=== PATIENT | female | born 1940 | race Two or more races ===

== ENCOUNTER → 2020-06-07 | Outpatient (CLI) | payer MEDICARE, OTHER ==
[2020-06-07 10:54] VITALS: BP 129/84; PULSE 75; RESP 18; TEMP 98.3
--- NOTE | 2020-06-07 11:12 | P.CONS ---
History of Present Illness - Reason for Consult Consult date: 06/07/20 - Chief Complaint Lower back pain - History of Present Illness This is a 79-year-old lady with history of chronic mostly axial lower back pain. The patient had diagnostic lumbar medial branch block at a different clinic clinic and was referred to us to do the radiofrequency ablation on the lumbar medial branches bilaterally. The pain goes across her lower back and only slightly down the left leg to the upper buttock area. Her pain gets worse by activities and improves by lying down in bed. She has been getting physical therapy which has helped her muscle strength. She uses a cane for ambulation. It looks like she did have caudal epidural steroid injection previously also. Past Medical History Past Medical History: Cancer, Musculoskeletal Disorder, Osteoarthritis (OA) Additional Past Medical History / Comment(s): hx. skin cancer, low back pain History of Any Multi-Drug Resistant Organisms: None Reported Past Surgical History: Appendectomy, Cholecystectomy, Hysterectomy, Tubal Ligation Additional Past Surgical History / Comment(s): liver laceration explor, ovarian surg. x2, cataracts removed Past Anesthesia/Blood Transfusion Reactions: No Reported Reaction Smoking Status: Never smoker Past Alcohol Use History: Occasional Additional Past Alcohol Use History / Comment(s): occasional glass of wine Past Drug Use History: None Reported Medications and Allergies Home Medications Medication Instructions Recorded Confirmed Type Acetaminophen [Tylenol Arthritis] 1,300 mg PO BID 06/01/20 06/07/20 History Allopurinol [Zyloprim] 300 mg PO DAILY 06/01/20 06/07/20 History Aspirin 325 mg PO BID 06/01/20 06/07/20 History Docusate [Colace] 200 mg PO BID 06/01/20 06/07/20 History Fish Oil/Dha/Epa [Fish Oil 1,200 1 each PO DAILY 06/01/20 06/07/20 History mg Fish Oil] Furosemide [Lasix] 40 mg PO DAILY 06/01/20 06/07/20 History Meloxicam [Mobic] 15 mg PO DAILY 06/01/20 06/07/20 History Multivitamins, Thera [Multivitamin 1 tab PO DAILY 06/01/20 06/07/20 History (formulary)] Sennosides [Senna] 2 tab PO BID 06/01/20 06/07/20 History Allergies Allergy/AdvReac Type Severity Reaction Status Date / Time No Known Allergies Allergy Verified 06/01/20 15:20 Physical Exam Vitals: Vital Signs Temp Pulse Resp BP Pulse Ox 06/07/20 10:48 98.3 F 75 18 129/84 97 - Constitutional General appearance: obese - Gastrointestinal General gastrointestinal: no organomegaly, soft, no tenderness - Integumentary Integumentary: no calor, no cellulitis, no cyanotic, no decreased turgor, no flushed, no jaundiced, no normal, no normal turgor, no pale, no rash, no ulcer - Neurologic Neuro exam of the lower extremities showed decreased but symmetrical muscle strength to 4 out of 5 bilaterally in the lower extremities for knee flexion and extension hip flexion and extension and hip abduction and adduction. Normal 5 out of 5 muscle strength for ankle flexion and extension. Normal straight leg raising test bilaterally. Positive facet loading test bilaterally. Tenderness around the right sacroiliac joint. Tenderness around the greater trochanter bilaterally. Neurologic: CNII-XII intact, focal deficits - Psychiatric Psychiatric: A&O x's 3, appropriate affect, intact judgment & insight Assessment and Plan Plan: This is a 79-year-old lady with mostly axial lower back pain that responded well to medial branch block at a different clinic clinic. The patient may benefit from getting lumbar radiofrequency ablation for L3 4, L4-L5, and L5-S1. We will start by doing the left side because it is more painful and then we'll do the right side few weeks after. The procedure was explained to the patient and she was agreeable to it. I thank you for the referral
== END | disposition home or self-care (01) ==
LOC: PNWHC3 10:35
PROVIDERS: ATTEND Anesthesiology
DX: M54.5 Low back pain (principal); M19.90 Unspecified osteoarthritis, unspecified site; Z79.82 Long term (current) use of aspirin; Z79.899 Other long term (current) drug therapy; Z79.891 Long term (current) use of opiate analgesic
CPT/HCPCS: 99211

== ENCOUNTER 2020-07-20 10:02 | Day surgery (SDC) | payer MEDICARE, OTHER ==
[2020-06-30 12:06] VITALS: BMI 29.2
[~2020-07-20 10:02] MED LIST: LACTATED RINGERS 1,000 ML IV SCH
[2020-07-20 10:20] VITALS: TEMP 98.8
[2020-07-20] MEDS ORDERED: fentaNYL (PF) 50 MCG/ML 2 ML AMP ONE (10:41)
[2020-07-20] MEDS ORDERED: MIDAZOLAM 2 MG/2 ML VIAL ONE (10:41)
[2020-07-20] MEDS ORDERED: ROPIVACAINE 5MG/ML 20ML VIAL ONE (10:41)
[2020-07-20] MEDS ORDERED: methylPREDNISolone ACETATE 40 MG/ML 1 ML VIAL ONE (10:41)
--- NOTE | 2020-07-20 11:22 | P.PCN ---
Date of Procedure: 07/20/20 Procedure(s) Performed: PREOPERATIVE DIAGNOSIS: 1-Lumbar Spondylosis with Facet Arthropathy without myelopathy. 2- Lumber degenerative disc disease. POSTOPERATIVE DIAGNOSIS: 1- Lumbar Spondylosis with Facet Arthropathy without myelopathy. 2- Lumber degenerative disc disease. PROCEDURES : Left Radiofrequency thermocoagulation,L2 , L3 , L4 , and L5 medial branch, with fluoroscopic guidance (fluoroscopy images available in the radiology department) ( to denervate the facet joint at left L3-4 , L4-5 ,and L5-S1 levels ) ANESTHESIA: Moderate sedation with intravenous versed 3 mg and fentaneyl 100 mcg, and local infiltration with Ropivacaine 0.5 % . EBL: Minimal PROCEDURE INDICATION: The patient with low back pain secondary to lumbar facet arthropathy who had more than 50% relief of her pain with previous diagnostic lumbar medial branch block with bupivacaine. PROCEDURE DESCRIPTION / TECHNIQUE: The patient was seen and identified in the preoperative area. Risks, benefits, complications, including but not limited to risk of infection ,bleeding , allergic reactions to the medications and no complete pain releife , and alternatives were discussed with the patient, the patient agreed to proceed with the procedure and signed the consent. IV was star juanito. Vital signs remained stable throughout the procedure. Patient was taken to the OR and time out was completed. The patient was placed in the prone position on the procedure table. The lumber area was prepped and draped in the usual sterile fashion. . Vital signs were closely monitored during the procedure .IV sedation was used during the procedure to decrease patients anxiety. Using AP and then oblique fluoroscopy, the ``eye of the Cuco dog corresponding to the connection between the superior and transverse articular processes of Left L2 , L3, L4, and L5 were identified, marked, and localized with 1% lidocaine. Subsequently, a 18 -wg radiofrequency cannula with a 10-mm active tip was advanced guided by fluoroscopy to each of the``eyes of the Cuco dog at Left L2 , L3, L4, and L5. Each site then underwent sensory testing at 50 Hz and 0 to 1 volt and motor testing at 2.5 Hz and 0 to 3 volt with local stimulation, but no radicular symptoms down the legs. Thereafter each sites underwent radiofrequency thermocoagulation at 80 degrees celsius for 90 seconds after injecting 0.5 ml of PF Ropivacaine 1ml, then after the thermocoagulation done , 1 ml of the block solution containing Depo-Medrol 40 mg and 3 ml of Ropivacaine 0.5% was injected at the Left L2 , L3 , L4 , and L5 , levels after negative aspiration of CSF and blood and with no paresthesias. Cannulas were retracted while injecting lidocaine 1% until the needle is out. At the end of the procedure, the skin was cleansed and bandages were applied. COMPLICATIONS: No acute complications. DISPOSITION / PLANS: The patient was placed in a supine position and transferred to the recovery area in a stable condition for observation and was discharged from the recovery room after meeting discharge criteria. Home discharge instructions given to the patient by the staff. The patient was reexamined prior to discharge. The patient will schedule a follow up in the clinic in 2-4 weeks.
[2020-07-20 11:46] VITALS: BP 156/67; PULSE 73; RESP 16
[2020-07-20] MEDS ORDERED: IV FLUID CONTINUATION 1,000 ML IV ONE (11:46)
--- NOTE | 2020-07-20 13:58 | FL ---
Fluoroscopy HISTORY: Pain 12 seconds fluoroscopy time supplied to the referring clinician. 3 intraoperative C-arm images docum ent the procedure. See dictated report from anesthesia.
== END 2020-07-20 12:01 | disposition home or self-care (01) ==
LOC: ORPAIN 10:02
PROVIDERS: ATTEND Specialist
DX: M47.816 Spondylosis without myelopathy or radiculopathy, lumbar region (principal); M51.36 Other intervertebral disc degeneration, lumbar region
CPT/HCPCS: 64635; 64636 ×2; J2250; J1030; J3010; J2795; 99152

== ENCOUNTER 2020-08-13 10:04 | Day surgery (SDC) | payer MEDICARE, OTHER ==
[2020-08-10 16:57] VITALS: BMI 29.2
[2020-08-13 10:40] VITALS: TEMP 98.6
[2020-08-13] MEDS ORDERED: LACTATED RINGERS 1,000 ML IV ONE (10:40)
[2020-08-13] MEDS ORDERED: LIDOCAINE 1% (10MG/ML) FOR IV START INTRADERMA ONE (10:51)
[2020-08-13] MEDS ORDERED: LIDOCAINE 1% INJ 10MG/ML (20 ML MDV) ONE (10:55)
[2020-08-13] MEDS ORDERED: LIDOCAINE 4% (PF) 5 ML AMP ONE (10:55)
[2020-08-13] MEDS ORDERED: MIDAZOLAM 2 MG/2 ML VIAL ONE (10:55)
[2020-08-13] MEDS ORDERED: fentaNYL (PF) 50 MCG/ML 2 ML AMP ONE (10:55)
--- NOTE | 2020-08-13 11:25 | P.PCN ---
Date of Procedure: 08/13/20 Description of Procedure: PREOPERATIVE DIAGNOSIS: 1-Lumbar Spondylosis with Facet Arthropathy without myelopathy. 2- Lumber degenerative disc disease. POSTOPERATIVE DIAGNOSIS: 1- Lumbar Spondylosis with Facet Arthropathy without myelopathy. 2- Lumber degenerative disc disease. PROCEDURES : right Radiofrequency thermocoagulation,L2 , L3 , L4 , and L5 medial branch, with fluoroscopic guidance (fluoroscopy images available in the radiology department) ( to denervate the facet joint at right L3-4 , L4-5 ,and L5-S1 levels ) ANESTHESIA: Moderate sedation with intravenous versed and fentanyl, and local infiltration with lidocaine 1% . EBL: Minimal PROCEDURE INDICATION: The patient with low back pain secondary to lumbar facet arthropathy who had more than 50% relief of her pain with previous diagnostic lumbar medial branch block with bupivacaine. PROCEDURE DESCRIPTION / TECHNIQUE: The patient was seen and identified in the preoperative area. Risks, benefits, complications, including but not limited to risk of infection ,bleeding , allergic reactions to the medications and no complete pain relief , and alternatives were discussed with the patient, the patient agreed to proceed with the procedure and signed the consent. IV was started. Vital signs remained stable throughout the procedure. Patient was taken to the OR and time out was completed. The patient was placed in the prone position on the procedure table. The lumber area was prepped and draped in the usual sterile fashion. . Vital signs were closely monitored during the procedure .IV sedation was used during the procedure to decrease patients anxiety. Using AP and then oblique fluoroscopy, the ``eye of the Cuco dog corresponding to the connection between the superior and transverse articular processes of right L2 , L3, L4, and L5 were identified, marked, and localized with 1% lidocaine. Subsequently, a 18 gauge 100-mm radiofrequency cannula with a 10-mm active tip was advanced guided by fluoroscopy to each of the``eyes of the Cuco dog at right L3 , L4, L5, and sacral ala. Each site then underwent motor testing at 2.5 Hz and 0 to 3 volt with local stimulation, but no radicular symptoms down the legs. Thereafter each sites underwent radiofrequency thermocoagulation at 80 degrees celsius for 90 seconds after injecting 1 mL of lidocaine 4% with negative aspiration of CSF and blood. Cannulas were retracted while injecting lidocaine 1% until the needle is out. At the end of the procedure, the skin was cleansed and bandages were applied. COMPLICATIONS: No acute complications. DISPOSITION / PLANS: The patient was placed in a supine position and transferre d to the recovery area in a stable condition for observation and was discharged from the recovery room after meeting discharge criteria. Home discharge instructions given to the patient by the staff. The patient was reexamined prior to discharge. The patient will schedule a follow up in the clinic in 2-4 weeks.
[2020-08-13] MEDS ORDERED: IV FLUID CONTINUATION 500 ML IV ONE (11:30)
[2020-08-13 11:38] VITALS: RESP 16
[2020-08-13 11:52] VITALS: BP 146/77; PULSE 57
--- NOTE | 2020-08-13 12:09 | FL ---
EXAMINATION TYPE: FL guided pain mgmt statistic DATE OF EXAM: 08/13/2020 HISTORY: Fluoroscopy time 23 seconds of fluoroscopy provided. IMPRESSION: 1. Fluoroscopy time.
== END 2020-08-13 12:06 | disposition home or self-care (01) ==
LOC: ORPAIN 10:04
PROVIDERS: ATTEND Anesthesiology
DX: M47.816 Spondylosis without myelopathy or radiculopathy, lumbar region (principal); M51.36 Other intervertebral disc degeneration, lumbar region; I10 Essential (primary) hypertension; M19.90 Unspecified osteoarthritis, unspecified site; F32.9 Major depressive disorder, single episode, unspecified; Z79.899 Other long term (current) drug therapy; Z79.1 Long term (current) use of non-steroidal anti-inflammatories (NSAID); Z85.828 Personal history of other malignant neoplasm of skin
CPT/HCPCS: 64635; 64636 ×2; J2001 ×2; J2250; J3010

== ENCOUNTER → 2020-09-01 | Outpatient (CLI) | payer MEDICARE, OTHER ==
--- NOTE | 2020-09-01 11:26 | P.PAINPG ---
Subjective Progress Note Date: 09/01/20 This is a 79-year-old lady with history of chronic mostly axial lower back pain. The patient had diagnostic lumbar medial branch block at a different clinic clinic and was referred to us to do the radiofrequency ablation on the lumbar medial branches bilaterally. The pain goes across her lower back and only slightly down the left leg to the upper buttock area. Her pain gets worse by activities and improves by lying down in bed. She has been getting physical therapy which has helped her muscle strength. She uses a cane for ambulation. It looks like she did have caudal epidural steroid injection previously also. She just recently had R and L L2, L3, L4, L5 RFA. Here for follow up today. She notes that the radiofrequency ablations were very helpful for her, noting greater than 80% relief on both sides. Today she complains of pain over her right buttock region that hurts with sitting and riding his from a seated position. Pain is described as sharp and stabbing and unremitting throughout the day. She feels pain in this area as a 9 out of 10, and her lower back is currently a 1 out of 10. In addition to above, 13-point review of systems is also negative for chest pain, shortness of breath, changes in vision, changes in hearing, new onset weakness, abdominal pain, diarrhea, extreme fatigue, malaise, fever, skin changes, homicidal or suicidal ideation, or bowel or bladder incontinence. - Constitutional General appearance: obese - Neurologic Neuro exam of the lower extremities showed decreased but symmetrical muscle strength to 4 out of 5 bilaterally in the lower extremities for knee flexion and extension hip flexion and extension and hip abduction and adduction. Normal 5 out of 5 muscle strength for ankle flexion and extension. Normal straight leg raising test bilaterally. negative facet loading test bilaterally. Tenderness around the right sacroiliac joint. sudarshan positive on the right side, ganeslen positive right side, thigh thrust positive right side Tenderness around the greater trochanter bilaterally. Neurologic: CNII-XII intact, focal deficits - Psychiatric Psychiatric: A&O x's 3, appropriate affect, intact judgment & insight Assessment and Plan Plan: This is a 79-year-old lady with mostly axial lower back pain that responded well to medial branch block at a different clinic clinic. We most recently performed bilateral lumbar radiofrequency ablation for L3 4, L4-L5, and L5-S1 showed very helpful. She is now noticing pain in her right sacroiliac area. We will proceed with a right sacroiliac joint injection PQRS Measure Charge Sheet PQRS Narrative: Hx Alcohol Use (MH) Yes Home Medications: Ambulatory Orders Acetaminophen [Tylenol Arthritis] 1,300 mg PO BID PRN 06/01/20 Allopurinol [Zyloprim] 300 mg PO DAILY 06/01/20 Docusate [Colace] 200 mg PO BID 06/01/20 Fish Oil/Dha/Epa [Fish Oil 1,200 mg Fish Oil] 1,200 mg PO BID 06/01/20 Furosemide [Lasix] 40 mg PO DAILY 06/01/20 Meloxicam [Mobic] 15 mg PO DAILY 06/01/20 Multivitamins, Thera [Multivitamin (formulary)] 1 tab PO DAILY 06/01/20 Acetaminophen-Codeine 300-30mg [Tylenol w/codeine #3] 1 tab PO Q6H PRN 06/07/20 Senna-Lax 1 tab PO DAILY PRN 08/31/20 carBAMazepine [TEGretol XR] 200 mg PO Q12H 08/31/20 Controlled Substance Measures - Controlled Substance Measures Is patient prescribed a controlled substance at discharge?: No
[2020-09-01 11:42] VITALS: BP 112/71; PULSE 94; RESP 16; TEMP 98.1
== END ==
LOC: PNWHC3 11:10
PROVIDERS: ATTEND Anesthesiology
DX: M53.3 Sacrococcygeal disorders, not elsewhere classified (principal); Z98.890 Other specified postprocedural states; Z79.899 Other long term (current) drug therapy
CPT/HCPCS: 99211

== ENCOUNTER 2020-09-21 12:04 | Day surgery (SDC) | payer MEDICARE, OTHER ==
[2020-09-17 13:51] VITALS: BMI 29.2
[2020-09-21 13:43] VITALS: TEMP 96.9
[2020-09-21] MEDS ORDERED: ROPIVACAINE 5MG/ML 20ML VIAL ONE (14:10)
[2020-09-21] MEDS ORDERED: TRIAMCINOLONE ACETONIDE 40 MG/ML 1 ML VIAL ONE (14:10)
--- NOTE | 2020-09-21 14:24 | P.PCN ---
Date of Procedure: 09/21/20 Anesthesia: none Surgeon: Britt Ochoa Pathology: none sent Condition: stable Disposition: PACU Description of Procedure: Preoperative diagnoses= sacroiliac joint dysfunction and sacroiliitis on the right side Postoperative diagnoses= same as preoperative diagnosis. Procedure= sacroiliac joint steroid injection under fluoroscopic guidance. Anesthesia= local anesthesia with lidocaine 1% and IV moderate conscious sedation with fentanyl and Versed Estimated blood loss=minimal. Procedure indication= the patient had a history of severe chronic low back pain, diagnosed with sacroiliitis and lumbar sacral facet arthropathy unresponsive to conservative treatment. Procedure description= the patient was seen and identified in the preoperative holding area, risks and benefits and alternative of the procedure and possible complications discussed with the patient, patient signed the consent. an IV was started, and vital signs were monitored and were stable throughout the procedure, patient was placed in the prone position or table and the lumbosacral area was prepped and draped with a sterile fashion, vital signs were closely mo nitored during the procedure.The sacroiliac joint was identified on the AP view of fluoroscopy then the C-arm was tilted to the contralateral oblique position to superimpose the anterior and posterior joint lines on each other and to have a unified joint line with the target point at the inferior one third of this line. I used 22-gauge 3-1/2 inch Quincke spinal needle for this procedure and after getting into the sacroiliac joint I injected 40 mg of Kenalog +2 MLS of Ropivacaine 0.5%. Patient tolerated the procedure well without any complication, The patient returned to supine position after the back was cleaned and a Band- Aid applied, the patient transported to recovery room in stable condition and he was monitored for 30 minutes before she was discharged home in stable condition . patient will follow up with the pain clinic in a few weeks. A copy of the needle placement was saved to the C-arm machine.
--- NOTE | 2020-09-21 14:34 | FL ---
Fluoroscopy HISTORY: Pain 3 seconds fluoroscopy time supplied to the referring clinician. 1 intraoperative C-arm images docume nt the procedure. See dictated report from anesthesia.
[2020-09-21 15:14] VITALS: BP 140/767; PULSE 78; RESP 20
== END 2020-09-21 15:30 | disposition home or self-care (01) ==
LOC: ORPAIN 12:04
PROVIDERS: ATTEND Anesthesiology
DX: G89.29 Other chronic pain (principal); M46.1 Sacroiliitis, not elsewhere classified
CPT/HCPCS: J3301; J2795; G0260; 27096

== ENCOUNTER → 2021-08-03 | Outpatient (CLI) | payer MEDICARE, OTHER ==
--- NOTE | 2021-08-03 13:04 | P.PN ---
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 Ramirez for lumbar RFA. Patient states she underwent a series of 8 injections in the lower lumbar spine where she had experienced significant pain relief. Pain level is currently at 6 out of 10 in intensity at is dull and achy in the lower lumbar spine but in a sharp shooting character, ascends from the tailbone upward the lower lumbar spine. Pain is provoked by sitting for periods of 20 minutes or more, bending or lifting. Pain is alleviated with medications, Biofreeze gel, physical therapy 2 times a week for 6 months, chiropractic treatments, massage, repositioning and rest. Interventional pain procedures completed include lumbar facet blocks medial branches at Dr. Ramirez's office Patient denies any side effects of the medication(s), denies excessive drowsiness or sleepiness, denies suicidal ideation and reports that the current pain medication is helping to control the pain and improve activities of daily living. Patient denies any motor or sensory deficits. Patient denies any fever or night sweats, denies any change in the bowel movements or urination. Physical Examination: -Constitutional: Cooperative. Not in acute distress . -HEENT: Neck is supple. No lymphadenopathy. No thyromegaly. Normal thyroid size. Eyes: No ptosis , no icterus, no photophobia. ENT: No auditory deficits. Normal oropharynx. No Thrush. - Respiratory: Chest clear to auscultations bilaterally. No wheezing. No rhonchi. - Cardiovascular: Regular rate and rhythm. S1 / S2 , no S3 , no S4. - Gastrointestinal: Abdomen soft no tenderness. Bowel sounds positive in all four quadrants. No organomegaly. - Genitourinary: Deferred. - Neurologic: Cranial nerve II to XII intact. No focal neurological deficits. - Psychatric: Alert & oriented x 3. Matching mood & appropriate affect. Judgment and insight intact. - Lymphatic: No Lymphadenopathy. - Musculoskeletal: Cervical spine: Muscle bulk/ tone/ strength in the bilateral upper extremities normal. Facet loading test cervical area positive. Lumbar spine: Motor bulk/ tone/ strength lower extremities , thigh and legs : 5/5 Deep tendon reflexes : Normal Knee Jerk. Normal Ankle Jerk . Vertebral body tenderness to palpation over L5 Lumbar Facet Loading Test positive bilateral L4 to L5 and L5 to S1 Straight Leg Raise: positive at 30 degrees right side/ left side Gaenslen's Test postive Sacral spine : Severe tenderness over the Sacroiliac joint: right side / left side Range of motion: Flexion of the lumbar spine <60 degrees Range of motion: Extension of the lumbar spine <20 degrees Gaenslen's Test positive Jasper test: positive right side / left side Assessment and plan: Chronic low back pain secondary to lumbar degenerative disc disease , lumbar spondylosis with facet arthropathy without myelopathy Recommendation of bilateral RFA of the L3 to L5 Denies aspirin anticoagulant use Risks, benefits of procedure discussed and patient verbalizes understanding All patient questions answered MAPS reviewed and it was appropriate. I have spent 31 minutes on patient care today. Dr Perez was available by phone for the evaluation of this patient. The time was used to review the medical records including relevant urine studies and Prescription history (MAPs), review of the available imaging, evaluation and examination of the patient, coordination of care with the medical staff and if applicable referring physicians, as well as creation of the medical record Objective - Vital Signs Vital signs: Intake & Output 08/02/21 08/03/21 08/03/21 18:59 06:59 18:59 Weight 74.843 kg PQRS Measure Charge Sheet Mode of Arrival: Cane PQRS Narrative: Pain Intensity [Lower Back] 5 Scale Used Numeric (1 - 10) Hx Alcohol Use (MH) Yes: RARE Home Medications: Ambulatory Orders Acetaminophen [Tylenol Arthritis] 1,300 mg PO BID 06/01/20 Allopurinol [Zyloprim] 300 mg PO QAM 06/01/20 Docusate [Colace] 200 mg PO BID 06/01/20 Fish Oil/Dha/Epa [Fish Oil 1,200 mg Fish Oil] 1,200 mg PO BID 06/01/20 Furosemide [Lasix] 40 mg PO QAM 06/01/20 Meloxicam [Mobic] 15 mg PO QAM 06/01/20 Acetaminophen [Tylenol Arthritis] 650 mg PO 1200 08/02/21 Docusate [Colace] 100 mg PO 1200 08/02/21 Furosemide [Lasix] 20 mg PO 1200 08/02/21 Naproxen 500 mg PO BID 08/02/21 traMADol HCL 50 mg PO BID 08/02/21
[2021-08-03 13:36] VITALS: BP 128/90; PULSE 86; RESP 18; TEMP 98
== END ==
LOC: PNWHC3 12:10
PROVIDERS: ATTEND Physician Assistant Medical
DX: M51.36 Other intervertebral disc degeneration, lumbar region (principal); M47.816 Spondylosis without myelopathy or radiculopathy, lumbar region; G89.29 Other chronic pain
CPT/HCPCS: 99211

== ENCOUNTER 2021-09-09 11:25 | Day surgery (SDC) | payer MEDICARE, OTHER ==
[2021-09-07 15:27] VITALS: BMI 28.3
[~2021-09-09 11:25] MED LIST changes: +LIDOCAINE 1% (10MG/ML) FOR IV START INTRADERMA PRN
[2021-09-09 12:11] VITALS: TEMP 99.2
[2021-09-09] MEDS ORDERED: ROPIVACAINE 5MG/ML 20ML VIAL ONE (12:26)
[2021-09-09] MEDS ORDERED: MIDAZOLAM 2 MG/2 ML VIAL ONE (12:26)
[2021-09-09] MEDS ORDERED: methylPREDNISolone ACETATE 40 MG/ML 1 ML VIAL ONE (12:26)
[2021-09-09] MEDS ORDERED: fentaNYL (PF) 50 MCG/ML 2 ML AMP ONE (12:26)
--- NOTE | 2021-09-09 13:05 | P.PCN ---
Date of Procedure: 09/09/21 Procedure(s) Performed: PREOPERATIVE DIAGNOSIS: 1-Lumbar Spondylosis with Facet Arthropathy without myelopathy. 2- Lumber degenerative disc disease. POSTOPERATIVE DIAGNOSIS: 1- Lumbar Spondylosis with Facet Arthropathy without myelopathy. 2- Lumber degenerative disc disease. PROCEDURES : Bilateral Radiofrequency thermocoagulation, L3 , L4 , and L5 medial branch, with fluoroscopic guidance (fluoroscopy images available in the radiology department) ( to denervate the facet joint at Bilateral L4-5 ,and L5-S1 levels ). ANESTHESIA: Monitored anesthesia care as per anesthesia department . EBL: Minimal PROCEDURE INDICATION: The patient with low back pain secondary to lumbar facet arthropathy who had more than 50% relief of her pain with previous diagnostic lumbar medial branch block with bupivacaine. PROCEDURE DESCRIPTION / TECHNIQUE: The patient was seen and identified in the preoperative area. Risks, benefits, complications, including but not limited to risk of infection ,bleeding , allergic reactions to the medications and no complete pain releife , and alternatives were discussed with the patient, the patient agreed to proceed with the procedure and signed the consent. IV was started. Vital signs remained stable throughout the procedure. Patient was taken to the OR and time out was completed. The patient was placed in the prone position on the procedure table. The lumber area was prepped and draped in the usual sterile fashion. . Vital signs were closely monitored during the procedure .IV sedation was used during the procedure to decrease patients anxiety. Using AP and then oblique fluoroscopy, the ``eye of the Cuco dog co rresponding to the connection between the superior and transverse articular processes of right L3, L4, and L5 were identified, marked, and localized with 1% lidocaine. Subsequently, a 18 -om radiofrequency cannula with a 10- mm active tip was advanced guided by fluoroscopy to each of the``eyes of the Cuco dog at right L3, L4, and L5. Each site then underwent sensory testing at 50 Hz and 0 to 1 volt and motor testing at 2.5 Hz and 0 to 3 volt with local stimulation, but no radicular symptoms down the legs. Thereafter each sites underwent radiofrequency thermocoagulation at 80 degrees celsius for 90 seconds after injecting 0.5 ml of PF Ropivacaine 1ml, then after the thermocoagulation done , 1 ml of the block solution containing Depo-Medrol 20 mg and 3 ml of Ropivacaine 0.5% was injected at the right L3 , L4 , and L5 , levels after negative aspiration of CSF and blood and with no paresthesias. Cannulas were retracted while injecting lidocaine 1% until the needle is out. The same procedure was repeated at the level of Left L3, L4, and L5 levels. At the end of the procedure, the skin was cleansed and bandages were applied. COMPLICATIONS: No acute complications. DISPOSITION / PLANS: The patient was placed in a supine position and transferred to the recovery area in a stable condition for observation and was discharged from the recovery room after meeting discharge criteria. Home discharge instructions given to the patient by the staff. The patient was reexamined prior to discharge. The patient will schedule a follow up in the clinic in 2-4 weeks.
[2021-09-09] MEDS ORDERED: IV FLUID CONTINUATION 1,000 ML IV ONE (13:10)
--- NOTE | 2021-09-09 13:11 | FL ---
EXAMINATION TYPE: FL guided pain mgmt statistic DATE OF EXAM: 09/09/2021 HISTORY: Fluoroscopy time 35 seconds of fluoroscopy provided. IMPRESSION: 1. Fluoroscopy time.
[2021-09-09 13:30] VITALS: BP 141/72; PULSE 100; RESP 16
== END 2021-09-09 14:01 | disposition home or self-care (01) ==
LOC: ORPAIN 11:25
PROVIDERS: ATTEND Specialist
DX: M47.816 Spondylosis without myelopathy or radiculopathy, lumbar region (principal); M51.36 Other intervertebral disc degeneration, lumbar region; I10 Essential (primary) hypertension; F32.A Depression, unspecified; Z79.899 Other long term (current) drug therapy; Z90.710 Acquired absence of both cervix and uterus; Z98.890 Other specified postprocedural states
CPT/HCPCS: 64635; 64636; J2250; J1030; J3010; J2795

== ENCOUNTER 2023-02-15 08:36 | Inpatient (IN) | payer MEDICARE, OTHER ==
[2023-02-15] MEDS ORDERED: MORPHINE SULFATE 2 MG/ML SYRINGE IVP STA (09:10)
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
[2023-02-15 09:29] LABS: Basophils # (A) 0.1 k/uL (0-0.2); Basophils % (A) 1 %; Eosinophils # (A) 0.4 k/uL (0-0.7); Eosinophils % (A) 6 %; HCT 41.7 % (34.0-46.0); HGB 13.7 gm/dL (11.4-16.0); Lymphocytes # (A) 3.4 k/uL (1.0-4.8); Lymphocytes % (A) 46 %; MCH 35.1 pg (25.0-35.0); MCHC 32.9 g/dL (31.0-37.0); MCV 106.9 fL (80.0-100.0); Macrocytosis Moderate; Mean Platelet Volume 8.7; Monocytes # (A) 0.4 k/uL (0-1.0); Monocytes % (A) 6 %; Neutrophils # (A) 2.9 k/uL (1.3-7.7); Neutrophils % (A) 39 %; Platelet Count 151 k/uL (150-450); RDW 13.1 % (11.5-15.5); WBC 7.3 k/uL (3.8-10.6)
[2023-02-15 09:47] LABS: ALT 17 U/L (4-34); African American GFR (CKD) 75 (>60 ml/min/1.73 sqM); Albumin 3.4 g/dL (3.5-5.0); Anion Gap 9 mmol/L; Blood Urea Nitrogen 23 mg/dL (7-17); Calcium 9.9 mg/dL (8.4-10.2); Carbon Dioxide 22 mmol/L (22-30); Chloride 102 mmol/L (98-107); Glucose 117 mg/dL (74-99); Non-African American GFR(CKD) 65 (>60 ml/min/1.73 sqM); Sodium 133 mmol/L (137-145); Total Bilirubin 0.6 mg/dL (0.2-1.3)
[2023-02-15 09:53] LABS: Appearance,Urine Cloudy (Clear); Bacteria,Urine Rare /hpf; Bilirubin,Urine Negative (Negative); Blood,Urine Moderate (Negative); Glucose,Urine (UA) Trace (Negative); Hyaline Casts,Urine 3 /lpf (0-2); Ketones,Urine Negative (Negative); Leukocyte Esterase,Urine Large (Negative); Mucus,Urine Rare /hpf; Nitrite,Urine Negative (Negative); PH, Urine 5.5 (5.0-8.0); Protein,Urine 1+ (Negative); RBC,Urine 66 /hpf (0-5); Specific Gravity,Urine 1.019 (1.001-1.035); Squamous Epithelial Cell,Urine 3 /hpf (0-4); Urobilinogen,Urine <2.0 mg/dL (<2.0); WBC,Urine >182 /hpf (0-5)
[2023-02-15 09:58] LABS: INR 0.9 (<1.2); Prothrombin Time 9.6 sec (9.0-12.0)
[2023-02-15 10:00] LABS: AST 30 U/L (14-36); Alkaline Phosphatase 157 U/L (38-126); Potassium 4.2 mmol/L (3.5-5.1)
[2023-02-15 10:01] LABS: Color,Urine Yellow
[2023-02-15 10:03] LABS: Partial Thromboplastin Time 21.1 sec (22.0-30.0)
--- NOTE | 2023-02-15 10:54 | CT ---
EXAMINATION TYPE: CT abdomen pelvis w con CT DLP: 642.3 mGycm, Automated exposure control for dose reduction was used. DATE OF EXAM: 02/15/2023 10:33 AM COMPARISON: None CLINICAL INDICATION:Female, 82 years old with history of Abdominal pain, acute, nonlocalized; Abdomin al pain, rectal and vaginal pain. TECHNIQUE: Standard CT of the abdomen and pelvis following the administration of 100 cc of Isovue 3 00 IV contrast material. Coronal and sagittal reformats were performed. FINDINGS: LOWER CHEST: Posterior dependent subsegmental atelectasis is noted. Dense mitral annulus calcificatio ns. ABDOMEN LIVER: Right inferior hepatic lobe 1.1 cm hyperdense lesion favored represent a flash filling hemangi isabella. GALLBLADDER AND BILE DUCTS: Gallbladder is surgically absent with mild intrahepatic and extra hepatic biliary dilatation likely physiologic and a postcholecystectomy change. No evidence of choledocholit hiasis. PANCREAS: Unremarkable. SPLEEN: Few calcific granulomas ADRENAL GLANDS: Unremarkable. KIDNEYS AND URETERS: No evidence of hydronephrosis or renal calculus. The kidneys enhance symmetrical ly. Contrast is demonstrated within both collecting systems on the delayed phase. PELVIS BLADDER: Unremarkable REPRODUCTIVE: The uterus is surgically absent. Pelvic floor laxity. ABDOMEN & PELVIS STOMACH AND BOWEL: Stomach and duodenum are unremarkable or cervical ventral wall thickening with hyp erenhancement of the distal sigmoid colon and rectum. Surrounding fat stranding identified. Distal co lonic diverticulosis without evidence for acute diverticulitis. No evidence of bowel obstruction. PERITONEUM: No evidence of pneumoperitoneum or free fluid. VASCULATURE: Mild atherosclerotic calcifications are present throughout the abdominal aorta and its b ranches. No evidence of aortic aneurysm. MUSCULOSKELETAL: No acute osseous abnormalities. Mild disc degeneration changes are present throughou t the thoracolumbar spine. Grade 1 anterolisthesis of L4 on L5 without evidence of pars defects. LYMPH NODES: No gross evidence for lymphadenopathy. SOFT TISSUE/ABDOMINAL WALL: Unremarkable IMPRESSION: 1. Findings most consistent with proctocolitis. 2. Colonic diverticulosis without evidence for acute diverticulitis.
[2023-02-15] MEDS ORDERED: cefTRIAXone IN SWFI 1,000 MG/10 ML SYRINGE IVP STA (11:07)
[2023-02-15] MEDS ORDERED: MORPHINE SULFATE 4 MG/ML SYRINGE IV PRN (11:17)
[2023-02-15] MEDS ORDERED: ONDANSETRON 4 MG/2 ML VIAL IVP PRN (11:17)
[2023-02-15] MEDS ORDERED: ACETAMINOPHEN TAB 325 MG TAB PO PRN ×2 (11:17→13:38)
[2023-02-15] MEDS ORDERED: NALOXONE 0.4 MG/ML 1 ML VIAL IV PRN (11:17)
[2023-02-15] MEDS: HYDROcodone/APAP 5-325MG 1 EACH TAB PO PRN (11:54)
[2023-02-15] MEDS ORDERED: NAPROXEN 250 MG TAB PO PRN (13:38)
[2023-02-15] MEDS ORDERED: LORazepam 0.5 MG TAB PO PRN (13:39)
[2023-02-15] MEDS ORDERED: LACTULOSE 20 GM/30 ML CUP PO PRN (13:39)
[2023-02-15] MEDS ORDERED: CALCIUM CARBONATE 500 MG CHEWABLE PO PRN (13:39)
[2023-02-15] MEDS ORDERED: MELATONIN 3 MG TABLET PO PRN (13:39)
[2023-02-15] MEDS ORDERED: MELOXICAM 7.5 MG TAB PO SCH (13:45)
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
[2023-02-15] MEDS: carBAMazepine 200 MG TAB PO SCH ×2 (16:25→20:03)
[2023-02-15] MEDS: ENOXAPARIN 40 MG/0.4 ML SYRINGE SQ SCH (16:25)
[2023-02-15] MEDS: PIPERACILLIN-TAZOBACTAM 3.375 GM in SODIUM CHLORIDE 0.9% 100 ML IVPB SCH ×2 (16:25→23:51)
[2023-02-15] MEDS: allopurinoL 300 MG TAB PO SCH (16:25)
[2023-02-15] MEDS: FAMOTIDINE 20 MG TAB PO SCH ×2 (16:25→20:03)
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
--- NOTE | 2023-02-15 17:12 | XR ---
PROCEDURE: XR Hip Complete LT -2 views DATE AND TIME: 02/15/2023 5:07 PM CLINICAL INDICATION: fall left hip pain TECHNIQUE: AP and frog-leg lateral views of the left hip were obtained. COMPARISON: None FINDINGS: There is no fracture or malalignment. The soft tissues are unremarkable. IMPRESSION: NO ACUTE PROCESS.
--- NOTE | 2023-02-15 17:19 | XR ---
PROCEDURE: XR ribs LT - 4V DATE AND TIME: 02/15/2023 5:07 PM CLINICAL INDICATION: PHH; Fall left rib pain TECHNIQUE: Department protocol COMPARISON: None FINDINGS: There is no displaced fracture or malalignment. No left pneumothorax or left pleural effusi on. The lungs and soft tissues are negative for acute process. Mildly enlarged cardiac silhouette not ed, with prominent mitral annular calcifications. IMPRESSION: Negative for left rib displaced fracture, left pneumothorax or left pleural effusion.
--- NOTE | 2023-02-15 19:34 | CA ---
Transthoracic Echo Report Name: Ingrid Avendaño Age: 82 Gender: F : 1940 Exam Date: 02/15/2023 15:52 Exam Location: [place] [facility] Ht (in): 64 Wt (lb): 125 Ordering Physician: Shweta Livingston Attending/Referring Phys: [id number], Miki Hose Seamer Ren Guthrie Procedure CPT: Indications: LV function, elevated troponin Cardiac Hx: Technical Quality: Contrast 1: Total Dose (mL): Contrast 2: Total Dose (mL): MEASUREMENTS (Male / Female) Normal Values 2D ECHO LV Diastolic Diameter PLAX 4.8 cm 4.2 - 5.9 / 3.9 - 5.3 cm LV Systolic Diameter PLAX 3.5 cm IVS Diastolic Thickness 1.2 cm 0.6 - 1.0 / 0.6 - 0.9 cm LVPW Diastolic Thickness 1.3 cm 0.6 - 1.0 / 0.6 - 0.9 cm LV Relative Wall Thickness 0.5 RV Internal Dim ED PLAX 2.9 cm LVOT Diameter 2.0 cm Aortic Root Diameter 2.8 cm LA Systolic Diameter LX 2.8 cm 3.0 - 4.0 / 2.7 - 3.8 cm LV Diastolic Volume MOD BP 61.4 cm??? 67 - 155 / 56 - 104 cm??? LV Systolic Volume MOD BP 33.2 cm??? 22 - 58 / 19 - 49 cm??? LV Ejection Fraction MOD BP 45.9 % >= 55 % LV Cardiac Index MOD BP 1231.5 cm???/min???m??? LV Diastolic Volume MOD 4C 68.6 cm??? LV Systolic Volume MOD 4C 32.0 cm??? LV Ejection Fraction MOD 4C 53.4 % LV Cardiac Index MOD 4C 1602.7 cm???/min???m??? LV Diastolic Length 4C 6.7 cm LV Systolic Length 4C 6.4 cm LV Diastolic Volume MOD 2C 52.9 cm??? LV Systolic Volume MOD 2C 34.4 cm??? LV Ejection Fraction MOD 2C 35.0 % LV Cardiac Index MOD 2C 810.4 cm???/min???m??? LV Diastolic Length 2C 7.0 cm LV Systolic Length 2C 6.3 cm LA Volume 67.6 cm??? 18 - 58 / 22 - 52 cm??? Ascending Aorta Diameter 2.7 cm DOPPLER AV Peak Velocity 169.8 cm/s AV Peak Gradient 11.5 mmHg LVOT Peak Velocity 73.7 cm/s LVOT Peak Gradient 2.2 mmHg AV Area Cont Eq pk 1.4 cm??? MV Peak Velocity 136.0 cm/s MV Peak Gradient 7.4 mmHg MV Mean Velocity 66.0 cm/s MV Mean Gradient 2.1 mmHg MV Velocity Time Integral 42.9 cm MR Peak Velocity 486.8 cm/s MR Peak Gradient 94.8 mmHg Mitral E Point Velocity 69.7 cm/s Mitral A Point Velocity 117.7 cm/s Mitral E to A Ratio 0.6 MV Deceleration Time 178.8 ms MV E' Velocity 4.9 cm/s Mitral E to MV E' Ratio 14.3 TR Peak Velocity 224.7 cm/s TR Peak Gradient 20.2 mmHg Right Ventricular Systolic Press 25.2 mmHg PV Peak Velocity 83.3 cm/s PV Peak Gradient 2.8 mmHg FINDINGS Left Ventricle Normal LV size. Mild concentric LVH. Anteroapical hypokenesis. Left ventricular ejection fraction is estimated at 40-45 %. Right Ventricle Normal right ventricular size. RVSP= 26mhg. Right Atrium Normal right atrial size. Left Atrium Mild to moderate LA dilitation. LA volume index= 42ml/m2 Mitral Valve Moderate Posterior MAC. Moderate to severe MR. Aortic Valve Aortic valve not well visualized. At least mild to moderate AV calcification. Mild AI. Tricuspid Valve Structurally normal tricuspid valve. Mild TR. Pulmonic Valve Pulmonic valve not well visualized. Mild PI. Pericardium Normal pericardium. Aorta Normal size aortic root and proximal ascending aorta. CONCLUSIONS Increase LV mass with reduced LV systolic function Large apical akinesis Ejection fraction around 40% Moderate to severe to severe mitral regurgitation Previewed by: Dr. Eleazar Mantilla MD (Electronically Signed) Final Date: 15 February 2023 19:33
[2023-02-16] MEDS: HYDROcodone/APAP 5-325MG 1 EACH TAB PO PRN ×2 (02:34→21:30)
[2023-02-16] MEDS ORDERED: AMINOPHYLLINE 500 MG/20 ML VIAL IV PRN (07:15)
[2023-02-16] MEDS ORDERED: REGADENOSON 0.4 MG/5 ML SYRINGE IV PRN (07:15)
[2023-02-16] MEDS ORDERED: CAFFEINE CITRATE 60 MG/3 ML VIAL IV PRN (07:15)
[2023-02-16] MEDS ORDERED: ASPIRIN 325 MG TAB PO STA (07:17)
[2023-02-16] MEDS ORDERED: NITROGLYCERIN SL TABS 0.4 MG TAB SUBLINGUAL PRN (07:17)
[2023-02-16] MEDS ORDERED: ALPRAZolam 0.25 MG TAB PO PRN (07:17)
[2023-02-16] MEDS ORDERED: ALPRAZolam 0.5 MG TAB PO PRN (07:17)
[2023-02-16] MEDS ORDERED: ATORVASTATIN 80 MG TAB PO STA (07:17)
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
[2023-02-16] MEDS: MELOXICAM 7.5 MG TAB PO SCH (09:09)
[2023-02-16] MEDS: carBAMazepine 200 MG TAB PO SCH ×2 (09:09→21:30)
[2023-02-16] MEDS: allopurinoL 300 MG TAB PO SCH (09:09)
[2023-02-16] MEDS: FAMOTIDINE 20 MG TAB PO SCH (09:09)
[2023-02-16] MEDS: SODIUM CHLORIDE 0.9% 1,000 ML in EMPTY BAG 1 BAG IV SCH (09:10)
[2023-02-16] MEDS: ENOXAPARIN 40 MG/0.4 ML SYRINGE SQ SCH (09:10)
[2023-02-16] MEDS: PIPERACILLIN-TAZOBACTAM 3.375 GM in SODIUM CHLORIDE 0.9% 100 ML IVPB SCH ×2 (09:10→17:12)
[2023-02-16] MEDS ORDERED: fentaNYL (PF) 50 MCG/ML 2 ML AMP IVP ONE (12:04)
[2023-02-16] MEDS ORDERED: MIDAZOLAM 2 MG/2 ML VIAL IVP ONE (12:04)
[2023-02-16] MEDS ORDERED: SODIUM CHLORIDE 0.9% 1,000 ML IV ONE (12:04)
[2023-02-16] MEDS ORDERED: LIDOCAINE 1% INJ 10MG/ML (20 ML MDV) SQ ONE (12:06)
[2023-02-16] MEDS ORDERED: VERAPAMIL SYRINGE (5 MG/10 ML) INTRAARTER ONE (12:07)
[2023-02-16] MEDS ORDERED: HEPARIN SODIUM 1,000 UN/ML (10ML VL) IV ONE (12:20)
[2023-02-16] MEDS ORDERED: IOPAMIDOL-370 100ML BTL INJ ONE (12:49)
--- NOTE | 2023-02-16 12:54 | P.CARDCATH ---
Date of Procedure: 02/16/23 Description of Procedure: DIAGNOSTIC CORONARY ANGIOGRAPHY and LEFT HEART CATH REPORT PROCEDURES PERFORMED: Left heart catheterization Selective coronary angiography Moderate conscious sedation 37 mins Right radial access INDICATION: NSTEMI Patient is a 82-year-old female who presented to the hospital with generalized weakness and frequent falling at home. On admission she was noticed to have urinary tract infection. Along with that she was noticed to have new EKG changes of T-wave inversions in inferolateral leads and mild elevation of troponin but with a flat pattern. This was followed up by a echocardiogram which showed new wall motion abnormality of 40-45%, anteroapical wall hypokinesia. Due to these findings she was scheduled for heart catheterization CONSENT: I have discussed the risks, benefits and alternative therapies for the above-mentioned procedure, sedation/analgesia and necessary blood product administration (if indicated, as they pertain to this patient). The patient has indicated understanding and acceptance of the risks and procedures discussed. Verbal consent was also obtained from the patient's daughter over phone after explaining her the risk factors of the procedure. Conscious Sedation: Patient's ECG, heart rate, blood pressure, pulse oximetry was monitored throughout the duration of procedure under the direct supervision. [1] mg Versed and 5 mg Fentanyl were used for induction of moderate conscious sedation. Total duration of 37 minutes. PROCEDURE:After the risks, benefits and alternatives of the above mentioned procedure explained in detail with the patient, informed consent was obtained. Patient was taken to the catheterization lab and prepped and draped in usual sterile fashion. 1% lidocaine was infiltrated over the right radial artery. A 6-Turkmen sheath was placed in the right radial artery using modified Seldinger technique. The sheath was flushed 5 mg verapamil was administered intra- arterially. J tipped wire was advanced under fluoroscopic guidance. Once the wire tip reached aortic root 3000 units of IV heparin was given. Over the wire JL3.5 diagnostic catheter was advanced. Wire was removed, catheter was flushed and manipulated under fluoroscopy to selectively engaged the left coronary ostium. Left coronary angioplasty was performed in different angiographic projections. This catheter was exchanged for a JR4 diagnostic catheter over the wire. The catheter was flushed and manipulated to cross the aortic valve. LV pressures were obtained. Pullback was performed across aortic valve and catheter was manipulated to selectively engage the right coronary ostium under fluoroscopic guidance. Right coronary angiography was performed in different angiographic projections. Catheter was removed over the wire. Radial sheath was flushed. The right radial sheath was removed and a TR band was placed with excellent patent hemostasis was achieved. The patient tolerated the procedure well. Patient was transported back to the post catheterization holding area in stable condition. Angiographic images were reviewed in detail. HEMODYNAMICS: Aortic Pressure: 116/52 mmHg. LV pressure: 116/5 mmHg. LVEDP 15 mmHg. SELECTIVE CORONARY ARTERIOGRAPHY: LEFT MAIN: The left main is a large caliber vessel which bifurcates into the LAD and circumflex. There is no significant stenosis. LEFT ANTERIOR DESCENDING CORONARY ARTERY: LAD is a large caliber vessel which wraps around to the apex. There is mild luminal irregularities in proximal LAD. Mid LAD has 30-40% diffuse disease. Distal LAD has 20-30% luminal irregularities. LAD gives rise to 3 diagonal branches of small to medium size which appears angiographically normal LEFT CIRCUMFLEX CORONARY ARTERY: It is nondominant vessel. Left circumflex is a moderate caliber vessel without significant stenosis. It gives rise to small OM1, medium-sized OM 2 approximately 2.5 mm vessel. It has 50-60% luminal narrowing. OM 3 is medium-sized and appears angina 15 normal RIGHT CORONARY ARTERY: Dominant vessel. The right coronary artery is a large caliber vessel which gives off a PDA and PLV branch. RCA has mild luminal irregularities in the range of 10-20% IMPRESSION: Moderate nonobstructive coronary artery disease Normal left sided filling pressures Nonischemic cardiomyopathy with LVEF 40-45% by echocardiogram PLAN: Patient's cardiomyopathy and wall motion cannot be explained by the cath findings. We decided to not do any interventions at this time. To assess patient's symptom and an outpatient setting and possibly do a noninvasive stress test to evaluate the ischemic burden Start aspirin 81 mg in high-intensity statin 150 cc fluids for 3 hours Follow-up in the office in 1-2 weeks. Performing Physician Maykel Serrano MD
[2023-02-16] MEDS ORDERED: RX INFO: IV CONTRAST WAS GIVEN 1 EACH MISC MISCELLANE PRN (12:57)
[2023-02-16] MEDS ORDERED: SODIUM CHLORIDE 0.9% 1,000 ML IV SCH (13:00)
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
[2023-02-17] MEDS: SODIUM CHLORIDE 0.9% 1,000 ML in EMPTY BAG 1 BAG IV SCH (04:11)
[2023-02-17] MEDS ORDERED: HEPARIN SODIUM,PORCINE 10,000 UNIT in SODIUM CHLORIDE 0.9% 1,000 ML IRRIGATION PRN (07:00)
[2023-02-17] MEDS ORDERED: HEPARIN SODIUM,PORCINE (1 ML) 2,500 UNIT in SODIUM CHLORIDE 0.9% 250 ML IRRIGATION PRN (07:00)
[2023-02-17] MEDS: PIPERACILLIN-TAZOBACTAM 3.375 GM in SODIUM CHLORIDE 0.9% 100 ML IVPB SCH ×4 (08:39→17:33)
[2023-02-17] MEDS: carBAMazepine 200 MG TAB PO SCH ×2 (08:44→21:00)
[2023-02-17] MEDS: MELOXICAM 7.5 MG TAB PO SCH (08:44)
[2023-02-17] MEDS: allopurinoL 300 MG TAB PO SCH (08:45)
[2023-02-17] MEDS: SPIRONOLACTONE 25 MG TAB PO SCH (08:45)
[2023-02-17] MEDS: ENOXAPARIN 40 MG/0.4 ML SYRINGE SQ SCH (08:46)
[2023-02-17] MEDS: ATORVASTATIN 40 MG TAB PO SCH (08:46)
[2023-02-17] MEDS: ASPIRIN 81 MG PO SCH (08:46)
[2023-02-17] MEDS: FAMOTIDINE 20 MG TAB PO SCH (08:46)
[2023-02-17 09:42] LABS: Basophils % (A) 1 %; Eosinophils # (A) 0.2 k/uL (0-0.7); Eosinophils % (A) 4 %; HGB 11.3 gm/dL (11.4-16.0); Lymphocytes # (A) 2.6 k/uL (1.0-4.8); Lymphocytes % (A) 54 %; MCH 34.8 pg (25.0-35.0); MCHC 32.3 g/dL (31.0-37.0); MCV 107.5 fL (80.0-100.0); Macrocytosis Moderate; Monocytes # (A) 0.2 k/uL (0-1.0); Monocytes % (A) 5 %; Neutrophils # (A) 1.7 k/uL (1.3-7.7); Neutrophils % (A) 34 %; Platelet Count 120 k/uL (150-450); RBC 3.26 m/uL (3.80-5.40); RDW 13.2 % (11.5-15.5); WBC 4.9 k/uL (3.8-10.6)
--- NOTE | 2023-02-17 09:56 | P.PN ---
Subjective Progress Note Date: 02/17/23 Principal diagnosis: Rectal bleeding with possible prolapse Excision doing well today. No abdominal pain. No rectal bleeding. No bowel movements. Patient requesting a stool softener. Hemoglobin 11. Objective - Vital Signs Vital signs: Vital Signs Temp 98.3 F 02/17/23 08:00 Pulse 79 02/17/23 08:00 Resp 18 02/17/23 08:00 BP 115/49 02/17/23 08:00 Pulse Ox 95 02/17/23 08:00 FiO2 Intake & Output 02/16/23 02/17/23 02/17/23 18:59 06:59 18:59 Intake Total 1460 180 Balance 1460 180 Intake: IV 200 Oral 1260 180 Other: Voiding Method Toilet # Voids 1 2 - Exam Abdomen: Soft, nontender, nondistended - Labs CBC & Chem 7: 02/17/23 09:26 02/15/23 09:12 Labs: Abnormal Lab Results - Last 24 Hours (Table) 02/17/23 Range/Units 09:26 RBC 3.26 L (3.80-5.40) m/uL Hgb 11.3 L (11.4-16.0) gm/dL MCV 107.5 H (80.0-100.0) fL Plt Count 120 L (150-450) k/uL Microbiology - Last 24 Hours (Table) 02/15/23 12:05 Blood Culture - Preliminary Blood 02/15/23 12:05 Blood Culture - Preliminary Blood 02/15/23 09:30 Urine Culture - Final Urine,Voided Assessment and Plan (1) Rectal bleeding Narrative/Plan: 82-year-old female with rectal bleeding and suspected rectal prolapse. We'll proceed with colonoscopy on Sunday. Begin clear liquids tomorrow. Stool softeners. Current Visit: Yes Status: Acute Code(s): K62.5 - HEMORRHAGE OF ANUS AND RECTUM SNOMED Code(s): 13776370
[2023-02-17 09:57] LABS: African American GFR (CKD) >90 (>60 ml/min/1.73 sqM); Anion Gap 2 mmol/L; Blood Urea Nitrogen 11 mg/dL (7-17); Calcium 8.8 mg/dL (8.4-10.2); Carbon Dioxide 25 mmol/L (22-30); Chloride 104 mmol/L (98-107); Glucose 93 mg/dL (74-99); Non-African American GFR(CKD) 81 (>60 ml/min/1.73 sqM); Potassium 4.2 mmol/L (3.5-5.1); Sodium 131 mmol/L (137-145)
[2023-02-17] MEDS: HYDROcodone/APAP 5-325MG 1 EACH TAB PO PRN (11:30)
--- NOTE | 2023-02-17 16:13 | P.PN ---
Progress Note - Text Progress Note Date: 02/17/23 Chief Complaint: Bleeding per rectum This is a 22-year-old patient who follows with Dr. Suman Mullen. Histories predominantly obtained by the daughter at the bedside. Tami. Patient lives with her. Patient's had bleeding hemorrhoids for about 2 months. Rather painful. Patient is being a few trips to the doctor. Last 2 weeks patient with having some loose stools. Unable to make to the bathroom. Hemorrhoid has been able to be reduced but does slips out again. No fever no chills. Appetite is fair. Patient has fallen twice in the last couple of weeks. Does complain of pain in the left lower abdomen in the hip area. Computed tomography scan EF at that shows some proctocolitis. Patient has some memory loss. Underlying schizophrenia. Patient has been treated outpatient several times to fungal infection the vaginal area. Having urinary dysuria. Admitted with acute proctocolitis, left hip pain, positive troponin some EKG changes. Prolapsing painful hemorrhoid 02/16/2023: Underwent cardiac catheterization by Dr. Serrano from cardiology. Nonobstructive disease. This evening tolerated his regular diet. No abdominal pain. Awaiting surgical input regarding the hemorrhoids. 02/17/2023: Tolerating diet. Suspected rectal prolapse. Seen by Dr. Abreu from surgery. For colonoscopy Sunday. No further bleeding. No pain. Active Medications Acetaminophen (Acetaminophen Tab 325 Mg Tab) 650 mg PO Q6HR PRN PRN Reason: Mild Pain or Fever > 100.5 Last Admin: 02/16/23 09:09 Dose: 650 mg Hydrocodone Bitart/Acetaminophen (Hydrocodone/Apap 5-325mg 1 Each Tab) 1 each PO Q4HR PRN PRN Reason: Moderate Pain (Scale 4 to 6) Last Admin: 02/17/23 11:30 Dose: 1 each Allopurinol (Allopurinol 300 Mg Tab) 300 mg PO DAILY [facility] Last Admin: 02/17/23 08:45 Dose: 300 mg Alprazolam (Alprazolam 0.25 Mg Tab) 0.25 mg PO Q6HR PRN PRN Reason: Mild Anxiety Alprazolam (Alprazolam 0.5 Mg Tab) 0.5 mg PO Q6HR PRN PRN Reason: Moderate Anxiety Aspirin (Aspirin 81 Mg) 81 mg PO DAILY [facility] Last Admin: 02/17/23 08:46 Dose: 81 mg Atorvastatin Calcium (Atorvastatin 40 Mg Tab) 40 mg PO DAILY [facility] Last Admin: 02/17/23 08:46 Dose: 40 mg Calcium Carbonate/Glycine (Calcium Carbonate 500 Mg Chewable) 1,000 mg PO Q4HR PRN PRN Reason: Dyspepsia Carbamazepine (Carbamazepine 200 Mg Tab) 200 mg PO BID [facility] Last Admin: 02/17/23 08:44 Dose: 200 mg Enoxaparin Sodium (Enoxaparin 40 Mg/0.4 Ml Syringe) 40 mg SQ DAILY [facility] Last Admin: 02/17/23 08:46 Dose: 40 mg Famotidine (Famotidine 20 Mg Tab) 20 mg PO DAILY [facility] Last Admin: 02/17/23 08:46 Dose: 20 mg Piperacillin Sod/Tazobactam (Sod 3.375 gm/ Sodium Chloride) 100 mls @ 25 mls/hr IVPB Q8HR [facility]; Protocol Last Admin: 02/17/23 08:39 Dose: 25 mls/hr Heparin Sodium (Porcine) 10, (000 unit/ Sodium Chloride) 1,001 mls @ 999 mls/hr IRRIGATION ONCE PRN PRN Reason: INTRA-OP Stop: 02/17/23 23:00 Heparin Sodium (Porcine) 2,500 (unit/ Sodium Chloride) 250.5 mls @ 250 mls/hr IRRIGATION ONCE PRN PRN Reason: INTRA-OP Stop: 02/17/23 23:00 Sodium Chloride 1,000 ml/ IV (Solution) 1,000 mls @ 56.699 mls/hr IV .[id number] [facility] Last Admin: 02/17/23 04:11 Dose: Not Given Lactulose (Lactulose 20 Gm/30 Ml Cup) 20 gm PO DAILY PRN PRN Reason: Constipation Lorazepam (Lorazepam 0.5 Mg Tab) 0.5 mg PO Q6HR PRN PRN Reason: Anxiety Melatonin (Melatonin 3 Mg Tablet) 3 mg PO HS PRN PRN Reason: Insomnia Meloxicam (Meloxicam 7.5 Mg Tab) 15 mg PO DAILY [facility] Last Admin: 02/17/23 08:44 Dose: 15 mg Miscellaneous Information (Rx Info: Iv Contrast Was Given 1 Each Misc) 1 each MISCELLANE DAILY PRN PRN Reason: Per Protocol Stop: 02/18/23 12:58 Naloxone HCl (Naloxone 0.4 Mg/Ml 1 Ml Vial) 0.2 mg IV Q2M PRN PRN Reason: Opioid Reversal Nitroglycerin (Nitroglycerin Sl Tabs 0.4 Mg Tab) 0.4 mg SUBLINGUAL Q5M PRN PRN Reason: Chest Pain Ondansetron HCl (Ondansetron 4 Mg/2 Ml Vial) 4 mg IVP Q8HR PRN PRN Reason: Nausea And Vomiting Spironolactone (Spironolactone 25 Mg Tab) 12.5 mg PO DAILY [facility] Last Admin: 02/17/23 08:45 Dose: 12.5 mg Past medical history to include: Hypertension, hyperlipidemia, osteoarthritis, skin cancer the face, no medication for blood pressure since weight loss. Liver laceration repaired. Schizophrenia Social history: Lives with her daughter. Nonsmoker. Alcohol occasionally. Does use a cane. Physical examination: VITAL SIGNS: 97.9, 70, 16, 95/54, 95% room air GENERAL: Reclining in bed, comfortable EYES: Pupils equal. Conjunctiva normal. HEENT: External appearance of nose and ears normal, oral cavity grossly normal. NECK: JVD not raised; masses not palpable. HEART: First and second heart sounds are normal; no edema. LUNGS: Respiratory rate normal; clear to auscultation. ABDOMEN: Soft, no tenderness, no guarding rigidity, liver spleen not palpable, no masses palpable. PSYCH: Alert and oriented x3; mood and affect less anxiousl. MUSCULOSKELETAL:No Clubbing/cyanosis;muscles-grossly intact. OA. Tenderness over the left hip. INVESTIGATIONS, reviewed in the clinical context: February 17: White count 4.9 hemoglobin 11.3 platelets 120 sodium 131 potassium 4.2 creatinine 0.71 2-D echocardiogram: EF 40 - 45%. Anteroapical hypokinesis. Moderate to severe MR. Left rib cage x-ray: No fracture. Left hip x-ray: No fracture White count 7.3 hemoglobin 13.7 platelets 151 sodium 133 potassium 4.2 BUN 23 creatinine 0.85 Troponin I 0.051, 0.046, 0.045 UA: Positive for leukoesterase WBC. Negative for nitrite EKG tracing personally reviewed by me-T wave changes in inferolateral leads. CT abdomen pelvis with contrast: Gallbladder absent. Thickening with hyperenhancement of the distal sigmoid colon and rectum. Surrounding fat stranding identified. Distal colonic diverticulosis. Without evidence of diverticulitis. Assessment and plan: -Acute proctocolitis. No GI service available in the hospital.: clinical improvement IV Zosyn. Diet advanced. General surgery following. -Painful probable rectal prolapse Current about planning for close copy Sunday -Left hip pain. Left rib pain. Patient had recent falls.-X-rays negative for fracture. Likely pain from arthritis and blunt injury. Seen by Dr. Malagon. No further intervention. -Nonobstructive coronary artery disease per cardiac catheterization. . Aspirin. Lipitor. -Chronic congestive heart failure from ischemic cardiomyopathy. EF 40-45%. Follow with cardiology. -Positive troponin likely from hemodynamic mismatch. Patient did not have any chest pain. 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 -Mild cognitive impairment, possibly from early dementia -Acute UTI with cystitis IV Zosyn -Full code Tolerating diet. Colonoscopy Sunday.
--- NOTE | 2023-02-17 21:52 | P.PN ---
Subjective Progress Note Date: 02/17/23 Subjective: Patient is doing well from cardiac vessel standpoint. She denies any chest pain chest pressure shortness of breath. She is hemodynamic stable. She continues to complain some abdominal pain. Blood pressure 96/52 Hemoglobin 11.3, creatinine 0.7 ASSESSMENT: Abdominal pain with rectal bleeding History of bleeding hemorrhoids Urinary tract infection Nonischemic cardiomyopathy, likely stress-induced with apical hypokinesia Moderate nonobstructive coronary artery disease Moderate to severe MR History of ovarian cancer History of hypertension, controlled without medications since weight loss PLAN: Continue aspirin 81 mg and atorvastatin 40 mg daily for moderate nonobstructive coronary artery disease Blood pressure 96/52. Due to limiting blood pressure, and unable to start her on guideline directed medical therapy for non-ischemic cardiomyopathy Objective - Vital Signs Vital signs: Vital Signs Temp 98.5 F 02/17/23 21:01 Pulse 76 02/17/23 21:01 Resp 16 02/17/23 21:01 BP 96/52 02/17/23 21:01 Pulse Ox 96 02/17/23 21:01 FiO2 Intake & Output 02/17/23 02/17/23 02/18/23 06:59 18:59 06:59 Intake Total 538 Balance 538 Intake: Oral 538 Other: Voiding Method Toilet Toilet Toilet # Voids 2 1 - Labs CBC & Chem 7: 02/17/23 09:26 02/17/23 09:26 Labs: Abnormal Lab Results - Last 24 Hours (Table) 02/17/23 02/17/23 Range/Units 09:26 09:26 RBC 3.26 L (3.80-5.40) m/uL Hgb 11.3 L (11.4-16.0) gm/dL MCV 107.5 H (80.0-100.0) fL Plt Count 120 L (150-450) k/uL Sodium 131 L (137-145) mmol/L Microbiology - Last 24 Hours (Table) 02/15/23 12:05 Blood Culture - Preliminary Blood 02/15/23 12:05 Blood Culture - Preliminary Blood
[2023-02-18] MEDS: PIPERACILLIN-TAZOBACTAM 3.375 GM in SODIUM CHLORIDE 0.9% 100 ML IVPB SCH ×3 (05:53→22:38)
[2023-02-18] MEDS: SODIUM CHLORIDE 0.9% 1,000 ML in EMPTY BAG 1 BAG IV SCH ×3 (06:08→22:40)
[2023-02-18] MEDS: ASPIRIN 81 MG PO SCH (07:55)
[2023-02-18] MEDS: MELOXICAM 7.5 MG TAB PO SCH (07:55)
[2023-02-18] MEDS: ATORVASTATIN 40 MG TAB PO SCH (07:56)
[2023-02-18] MEDS: SPIRONOLACTONE 25 MG TAB PO SCH (07:56)
[2023-02-18] MEDS: ENOXAPARIN 40 MG/0.4 ML SYRINGE SQ SCH (07:56)
[2023-02-18] MEDS: FAMOTIDINE 20 MG TAB PO SCH (07:56)
[2023-02-18] MEDS: allopurinoL 300 MG TAB PO SCH (07:56)
--- NOTE | 2023-02-18 10:37 | P.PN ---
Subjective Progress Note Date: 02/18/23 Principal diagnosis: Rectal bleeding with possible prolapse Patient doing well today. She has moved her bowels. No rectal pain or swelling. Objective - Vital Signs Vital signs: Vital Signs Temp 97.8 F 02/18/23 07:42 Pulse 63 02/18/23 07:42 Resp 16 02/18/23 07:42 BP 115/61 02/18/23 07:42 Pulse Ox 97 02/18/23 07:42 FiO2 Intake & Output 02/17/23 02/18/23 02/18/23 18:59 06:59 18:59 Intake Total 538 Balance 538 Intake: Oral 538 Other: Voiding Method Toilet Toilet Toilet # Voids 1 5 2 - Exam Abdomen: Soft, nontender, nondistended - Labs CBC & Chem 7: 02/17/23 09:26 02/17/23 09:26 Labs: Microbiology - Last 24 Hours (Table) 02/15/23 12:05 Blood Culture - Preliminary Blood 02/15/23 12:05 Blood Culture - Preliminary Blood Assessment and Plan (1) Rectal bleeding Narrative/Plan: Patient doing well at this time. Begin bowel prep for colonoscopy tomorrow. Current Visit: Yes Status: Acute Code(s): K62.5 - HEMORRHAGE OF ANUS AND RECTUM SNOMED Code(s): 58933281
[2023-02-18] MEDS: carBAMazepine 200 MG TAB PO SCH ×2 (10:42→20:13)
[2023-02-18] MEDS ORDERED: PEG 3350 (236 GM/BTL) + LYTES 4,000 ML BOTTLE PO ONE (11:00)
--- NOTE | 2023-02-18 15:55 | P.PN ---
Progress Note - Text Progress Note Date: 02/18/23 Chief Complaint: Bleeding per rectum This is a 22-year-old patient who follows with Dr. Suman Mullen. Histories predominantly obtained by the daughter at the bedside. Tami. Patient lives with her. Patient's had bleeding hemorrhoids for about 2 months. Rather painful. Patient is being a few trips to the doctor. Last 2 weeks patient with having some loose stools. Unable to make to the bathroom. Hemorrhoid has been able to be reduced but does slips out again. No fever no chills. Appetite is fair. Patient has fallen twice in the last couple of weeks. Does complain of pain in the left lower abdomen in the hip area. Computed tomography scan EF at that shows some proctocolitis. Patient has some memory loss. Underlying schizophrenia. Patient has been treated outpatient several times to fungal infection the vaginal area. Having urinary dysuria. Admitted with acute proctocolitis, left hip pain, positive troponin some EKG changes. Prolapsing painful hemorrhoid 02/16/2023: Underwent cardiac catheterization by Dr. Serrano from cardiology. Nonobstructive disease. This evening tolerated his regular diet. No abdominal pain. Awaiting surgical input regarding the hemorrhoids. 02/17/2023: Tolerating diet. Suspected rectal prolapse. Seen by Dr. Abreu from surgery. For colonoscopy Sunday. No further bleeding. No pain. 02/18/2023: Getting liquid diet. For colonoscopic tomorrow. No bleeding per rectum. No abdominal pain. Active Medications Acetaminophen (Acetaminophen Tab 325 Mg Tab) 650 mg PO Q6HR PRN PRN Reason: Mild Pain or Fever > 100.5 Last Admin: 02/16/23 09:09 Dose: 650 mg Hydrocodone Bitart/Acetaminophen (Hydrocodone/Apap 5-325mg 1 Each Tab) 1 each PO Q4HR PRN PRN Reason: Moderate Pain (Scale 4 to 6) Last Admin: 02/17/23 11:30 Dose: 1 each Allopurinol (Allopurinol 300 Mg Tab) 300 mg PO DAILY [facility] Last Admin: 02/18/23 07:56 Dose: 300 mg Alprazolam (Alprazolam 0.25 Mg Tab) 0.25 mg PO Q6HR PRN PRN Reason: Mild Anxiety Alprazolam (Alprazolam 0.5 Mg Tab) 0.5 mg PO Q6HR PRN PRN Reason: Moderate Anxiety Aspirin (Aspirin 81 Mg) 81 mg PO DAILY [facility] Last Admin: 02/18/23 07:55 Dose: 81 mg Atorvastatin Calcium (Atorvastatin 40 Mg Tab) 40 mg PO DAILY [facility] Last Admin: 02/18/23 07:56 Dose: 40 mg Calcium Carbonate/Glycine (Calcium Carbonate 500 Mg Chewable) 1,000 mg PO Q4HR PRN PRN Reason: Dyspepsia Carbamazepine (Carbamazepine 200 Mg Tab) 200 mg PO BID [facility] Last Admin: 02/18/23 10:42 Dose: 200 mg Enoxaparin Sodium (Enoxaparin 40 Mg/0.4 Ml Syringe) 40 mg SQ DAILY [facility] Last Admin: 02/18/23 07:56 Dose: 40 mg Famotidine (Famotidine 20 Mg Tab) 20 mg PO DAILY [facility] Last Admin: 02/18/23 07:56 Dose: 20 mg Sodium Chloride 1,000 ml/ IV (Solution) 1,000 mls @ 56.699 mls/hr IV .[id number] [facility] Last Admin: 02/18/23 06:08 Dose: 56.699 mls/hr Piperacillin Sod/Tazobactam (Sod 3.375 gm/ Sodium Chloride) 100 mls @ 25 mls/hr IVPB Q8H [facility]; Protocol Last Admin: 02/18/23 13:52 Dose: 25 mls/hr Lactulose (Lactulose 20 Gm/30 Ml Cup) 20 gm PO DAILY PRN PRN Reason: Constipation Lisinopril (Lisinopril 2.5 Mg Tab) 2.5 mg PO DAILY [facility] Lorazepam (Lorazepam 0.5 Mg Tab) 0.5 mg PO Q6HR PRN PRN Reason: Anxiety Melatonin (Melatonin 3 Mg Tablet) 3 mg PO HS PRN PRN Reason: Insomnia Meloxicam (Meloxicam 7.5 Mg Tab) 15 mg PO DAILY [facility] Last Admin: 02/18/23 07:55 Dose: 15 mg Metoprolol Succinate (Metoprolol Succinate (Er) 25 Mg Tab.Er.24h) 12.5 mg PO DAILY [facility] Naloxone HCl (Naloxone 0.4 Mg/Ml 1 Ml Vial) 0.2 mg IV Q2M PRN PRN Reason: Opioid Reversal Nitroglycerin (Nitroglycerin Sl Tabs 0.4 Mg Tab) 0.4 mg SUBLINGUAL Q5M PRN PRN Reason: Chest Pain Ondansetron HCl (Ondansetron 4 Mg/2 Ml Vial) 4 mg IVP Q8HR PRN PRN Reason: Nausea And Vomiting Spironolactone (Spironolactone 25 Mg Tab) 12.5 mg PO DAILY [facility] Last Admin: 02/18/23 07:56 Dose: 12.5 mg Past medical history to include: Hypertension, hyperlipidemia, osteoarthritis, skin cancer the face, no medication for blood pressure since weight loss. Liver laceration repaired. Schizophrenia Social history: Lives with her daughter. Nonsmoker. Alcohol occasionally. Does use a cane. Physical examination: VITAL SIGNS: 96.4, 72, 18, 1 28 x 75, 99% room air GENERAL: Reclining in bed, comfortable EYES: Pupils equal. Conjunctiva normal. HEENT: External appearance of nose and ears normal, oral cavity grossly normal. NECK: JVD not raised; masses not palpable. HEART: First and second heart sounds are normal; no edema. LUNGS: Respiratory rate normal; clear to auscultation. ABDOMEN: Soft, no tenderness, no guarding rigidity, liver spleen not palpable, no masses palpable. PSYCH: Alert and oriented x3; mood and affect less anxiousl. MUSCULOSKELETAL:No Clubbing/cyanosis;muscles-grossly intact. OA. Tenderness over the left hip. INVESTIGATIONS, reviewed in the clinical context: February 17: White count 4.9 hemoglobin 11.3 platelets 120 sodium 131 potassium 4.2 creatinine 0.71 2-D echocardiogram: EF 40 - 45%. Anteroapical hypokinesis. Moderate to severe MR. Left rib cage x-ray: No fracture. Left hip x-ray: No fracture White count 7.3 hemoglobin 13.7 platelets 151 sodium 133 potassium 4.2 BUN 23 creatinine 0.85 Troponin I 0.051, 0.046, 0.045 UA: Positive for leukoesterase WBC. Negative for nitrite EKG tracing personally reviewed by me-T wave changes in inferolateral leads. CT abdomen pelvis with contrast: Gallbladder absent. Thickening with hyperenhancement of the distal sigmoid colon and rectum. Surrounding fat stranding identified. Distal colonic diverticulosis. Without evidence of diverticulitis. Assessment and plan: -Acute proctocolitis. No GI service available in the hospital.: clinical improvement IV Zosyn. Diet advanced. General surgery following. -Painful probable rectal prolapse Dr. Corona: planning for colonoscopy Sunday -Left hip pain. Left rib pain. Patient had recent falls.-X-rays negative for fracture. Likely pain from arthritis and blunt injury. Seen by Dr. Malagon. No further intervention. -Nonobstructive coronary artery disease per cardiac catheterization. . Aspirin. Lipitor. -Chronic congestive heart failure from ischemic cardiomyopathy. EF 40-45%. Follow with cardiology. -Positive troponin likely from hemodynamic mismatch. Patient did not have any chest pain. 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 -Mild cognitive impairment, possibly from early dementia -Acute UTI with cystitis IV Zosyn -Full code Liquid diet. Colonoscopic tomorrow.
[2023-02-18] MEDS: METOPROLOL SUCCINATE (ER) 25 MG TAB.ER.24H PO SCH (16:37)
--- NOTE | 2023-02-18 20:12 | P.PN ---
Subjective Progress Note Date: 02/18/23 Subjective: Patient is doing well from cardiac vessel standpoint. She denies any chest pain chest pressure shortness of breath. She is hemodynamic stable. She continues to complain some abdominal pain. Blood pressure 96/52 She is planned to undergo coloscopy for her internal hemorrhoids tomorrow ASSESSMENT: Perioperative cardiac risk assessment Abdominal pain with rectal bleeding History of bleeding hemorrhoids Urinary tract infection Nonischemic cardiomyopathy, likely stress-induced with apical hypokinesia Moderate nonobstructive coronary artery disease Moderate to severe MR History of ovarian cancer History of hypertension, controlled without medications since weight loss PLAN: She is at low to moderate risk for low-risk procedure Continue aspirin 81 mg and atorvastatin 40 mg daily for moderate nonobstructive coronary artery disease Blood pressure 96/52. Due to limiting blood pressure, and unable to start her on guideline directed medical therapy for non-ischemic cardiomyopathy Objective - Vital Signs Vital signs: Vital Signs Temp 96.4 F L 02/18/23 14:11 Pulse 72 02/18/23 14:11 Resp 18 02/18/23 14:11 BP 128/75 02/18/23 14:11 Pulse Ox 99 02/18/23 14:11 FiO2 Intake & Output 02/18/23 02/18/23 02/19/23 06:59 18:59 06:59 Other: Voiding Method Toilet Toilet # Voids 5 1 # Bowel Movements 5 - Labs CBC & Chem 7: 02/17/23 09:26 02/17/23 09:26 Labs: Microbiology - Last 24 Hours (Table) 02/15/23 12:05 Blood Culture - Preliminary Blood 02/15/23 12:05 Blood Culture - Preliminary Blood
[2023-02-19] MEDS: PIPERACILLIN-TAZOBACTAM 3.375 GM in SODIUM CHLORIDE 0.9% 100 ML IVPB SCH ×3 (05:36→22:22)
--- NOTE | 2023-02-19 10:00 | CDI ---
Documentation Clarification Form Date: 02/19/2023 09:15:51 AM From: Kristyn Haddad RN, CCDS Admit Date: 02/15/2023 11:19:00 AM Patient Name: Ingrid Avendaño Visit Number: [id number] Discharge Date: ATTENTION: The Clinical Documentation Specialists (CDI) and [facility] Coding Staff appreciate your assistance in clarifying documentation. Please respond to the clarification below the line at the bottom and electronically sign. The CDI & [facility] Coding staff will review the response and follow-up if needed. Please note: Queries are made part of the Legal Health Record. If you have any questions, please contact the author of this message via ITS. Dr. Travis Romano Your patient has the documented diagnosis of unspecified CHF, chronic. Additional information regarding the type CHF is requested. History/Risk Factors: Clinical Indicators: . Chronic congestive heart failure form ischemic cardiomyopathy. EF 40-45% is in the progress notes on 02/17/23. 02/17 95/54 70 16 97.9 95% RA 02/16 Left heart Catheterization: Moderate nonobstructive coronary artery disease. Normal left sided filling pressures. Nonischemic cardiomyopathy with LVEF 40-45% by echocardiogram CT abdomen/pelvis: Lower chest: posterior dependent subsegmental atelectasis is noted. Dense mitral annulus calcifications. Treatment: ASA 81 MG PO Daily Lipitor 40 MG PO Daily Zestril 2.5 MG PO Daily Toprol XL 12.5 MG PO Daily Aldactone 12.5 MG PO Daily In your professional opinion, can you please clarify the type of CHF if known? [ + ] Chronic Systolic Heart Failure reduced EF) [ ] Chronic Diastolic Heart Failure (preserved EF) [ ] Chronic Systolic & Diastolic Heart Failure [ ] Other, please specify [ ] Unable to determine (Template Last Revised: July 2020) MTDD
[2023-02-19] MEDS ORDERED: PROPOFOL 10 MG/ML 20 ML VIAL IV ONE (10:21)
[2023-02-19] MEDS ORDERED: IV FLUID CONTINUATION 1,000 ML IV ONE ×2 (10:22)
--- NOTE | 2023-02-19 10:37 | P.PN ---
Subjective HISTORY OF PRESENT ILLNESS: This is a 82-year-old female with a past medical history significant for hypertension, ovarian cancer and osteoarthritis. Patient does not follow with a home hospice aide. We have been asked to see the patient in consultation for weakness and elevated troponin. Patient examined at the bedside. Patient presented to the hospital with a chief complaint of pain in the rectum and hemorrhoids. She reports painful urination. She denies chest pain or pressure. Denies shortness of breath. She denies a history of CHF. She does report taking lasix at home for lower extremity edema on occasion. she denies any chest pain or pressure. She denies shortness of breath. Echocardiogram completed revealing ejection fraction 40-45% with anterior apical hypokinesis, moderate to severe MR, mild TR, and mild PI. * EKG reveals sinus mechanism with T-wave inversions in inferior leads and lead 1, V4 through V6. No previous EKG available for comparison * CT abdomen and pelvis: Colonic diverticulosis without evidence for acute diverticulitis. Findings most consistent with proctocolitis. * Laboratory data: WBC 7.3. Hemoglobin 13.7. Platelet count 151. Sodium 133. Potassium 4.2. BUN 23. Creatinine 0.85. Troponin 0.051. * Current home cardiac medications include Lasix 40 mg daily 02/19/2023 Patient examined this morning at the bedside. She denies chest pain or pressure. She denies shortness of breath. She is status post cardiac catheterization revealing nonobstructive coronary artery disease. Patient's blood pressure has improved with a systolic in the 130s today. She is scheduled for colonoscopy today. PHYSICAL EXAM: VITAL SIGNS: Reviewed. GENERAL: Well-developed in no acute distress. HEENT: Head is normocephalic. Pupils are equal, round. Sclerae anicteric. Mucous membranes of the mouth are moist. Neck supple. No JVD or thyromegaly LUNGS: Respirations even and unlabored. Lungs essentially clear to auscultation bilaterally. HEART: Regular rate and rhythm. S1 and S2 heard. + systolic murmur ABDOMEN: Soft. Nondistended. Nontender. EXTREMITIES: Normal range of motion. No clubbing or cyanosis. Peripheral pulses intact. No lower extremity edema NEUROLOGIC: Awake and alert. Oriented x 3. ASSESSMENT: Abdominal pain with rectal bleeding History of bleeding hemorrhoids Urinary tract infection Nonischemic cardiomyopathy, 40-45% Moderate to severe MR History of ovarian cancer History of hypertension, controlled without medications since weight loss PLAN: Continue current cardiac medications Patient scheduled for colonoscopy today Patient is stable from a cardiac standpoint with no further inpatient recommendations We will sign off. Please reconsult if needed. Nurse practitioner note has been reviewed by physician. Signing provider agrees with the documented findings, assessment, and plan of care. Objective - Vital Signs Vital signs: Vital Signs Temp 98 F 02/19/23 09:14 Pulse 61 02/19/23 09:14 Resp 18 02/19/23 09:14 BP 96/55 02/19/23 09:14 Pulse Ox 99 02/19/23 09:14 FiO2 Intake & Output 02/18/23 02/19/23 02/19/23 18:59 06:59 18:59 Intake Total 1040 Balance 1040 Intake: Intake, IV Titration 320 Amount Piperacillin-Tazobactam 3 200 .375 gm In Sodium Chloride 0.9% 100 ml @ 25 mls/hr IVPB Q8H [facility] Rx#: [id number] Sodium Chloride 0.9% 1, 120 000 ml @ 0 mls/hr IV .STK -[facility] Rx#:[id number] Oral 720 Other: Voiding Method Toilet Toilet # Voids 1 6 # Bowel Movements 5 8 - Labs CBC & Chem 7: 02/17/23 09:26 02/17/23 09:26 Labs: Microbiology - Last 24 Hours (Table) 02/15/23 12:05 Blood Culture - Preliminary Blood 02/15/23 12:05 Blood Culture - Preliminary Blood
--- NOTE | 2023-02-19 10:45 | CDI ---
Documentation Clarification Form Date: 02/19/2023 10:01:10 AM From: Kristyn Haddad RN, CCDS Admit Date: 02/15/2023 11:19:00 AM Patient Name: Ingrid Avendaño Visit Number: [id number] Discharge Date: ATTENTION: The Clinical Documentation Specialists (CDI) and [facility] Coding Staff appreciate your assistance in clarifying documentation. Please respond to the clarification below the line at the bottom and electronically sign. The CDI & [facility] Coding staff will review the response and follow-up if needed. Please note: Queries are made part of the Legal Health Record. If you have any questions, please contact the author of this message via ITS. Dr. Travis Romano There is documentation of positive troponin likely from hemodynamic mismatch in the progress note starting on 01/2523. Additional clarification is requested. EKG (attending) T wave changes in inferior leads History/Risk Factors: Hypertension, hyperlipidemia, Schizophrenia Clinical Indicators: 82-year-old female present with abdominal pain, bleeding hemorrhoids. She had elevated troponin 0.051, 0.046, 0.045. No complaint of chest pain. 02/15 VS: 107/63 94 16 98 95% RA 02/16 Cardiology consult: EKG reveals sinus mechanism with T-wave inversions in inferior leads and lead 1, V4 through V6. WBC 7.3. Hemoglobin 13.7. Platelet count 151. Sodium 133. Potassium 4.2. BUN 23. Creatinine 0.8. Troponin 0.051. 02/18 Cardiology progress note: Nonischemic Cardiomyopathy, likely stress-induced with apical hypokinesia Moderate nonobstructive coronary artery disease. 02/16 Left heart Catheterization: Moderate nonobstructive coronary artery disease. Normal left sided filling pressures. Nonischemic cardiomyopathy with LVEF 40-45% by echocardiogram Patient's cardiomyopathy and wall motion cannot be explained by the cath findings. We decided to not do any interventions at this time. Treatment: ASA 81 MG PO Daily Lipitor 40 MG PO Daily Zestril 2.5 MG PO Daily Toprol XL 12.5 MG PO Daily Aldactone 12.5 MG PO Daily Can you please further clarify hemodynamic mismatch? [ ] Other forms of acute ischemic heart disease [ + ] Type 2 [place] stress induced [ ] Other, please specify [ ] Unable to determine (Template Last Revised: August 2020) MTDD
--- NOTE | 2023-02-19 11:35 | P.PCN ---
Date of Procedure: 02/19/23 Procedure(s) Performed: PREOPERATIVE DIAGNOSIS: Rectal bleeding, possible rectal mass POSTOPERATIVE DIAGNOSIS: Rectal prolapse, proctitis, diverticulosis PROCEDURE: Colonoscopy with biopsy ANESTHESIA: MAC SURGEON: Singh Corona M.D. SPECIMENS: Rectum ENDOSCOPIC PROCEDURE: The patient was placed on the endoscopy table in the left decubitus position. The patient had a rectal prolapse at the time of initial evaluation today. The rectum was extending 6 cm beyond the anus. Mucosal was mildly indurated but able to be reduced without difficulty. The Olympus colonoscope was then inserted into the anus and passed under direct visualization to the base of the cecum. The appendiceal orifice was visualized. From that point the scope was slowly withdrawn inspecting all surfaces carefully. There were no neoplastic inflammatory or polypoid lesions throughout the cecum, ascending, transverse, descending, or sigmoid colon. The patient had mild left-sided diverticulosis. The distal rectum was edematous and mildly inflamed consistent with mild proctitis. This proctitis ensure was related to the intermittent rectal prolapse. Biopsies were taken. The rectum did not prolapse again during the procedure. Digital rectal examination was normal. The patient was taken to the recovery room in stable condition per anesthesia guidelines. RECOMMENDATIONS: Resume diet. Continue stool softeners as needed. Kegel exercises will be explained to the patient. We'll recommend colorectal surgery referral as outpatient.
[2023-02-19] MEDS: allopurinoL 300 MG TAB PO SCH (12:28)
[2023-02-19] MEDS: ENOXAPARIN 40 MG/0.4 ML SYRINGE SQ SCH (12:28)
[2023-02-19] MEDS: FAMOTIDINE 20 MG TAB PO SCH (12:29)
[2023-02-19] MEDS: ATORVASTATIN 40 MG TAB PO SCH (12:29)
[2023-02-19] MEDS: carBAMazepine 200 MG TAB PO SCH ×2 (12:29→20:13)
[2023-02-19] MEDS: ASPIRIN 81 MG PO SCH (12:29)
[2023-02-19] MEDS: MELOXICAM 7.5 MG TAB PO SCH (12:30)
[2023-02-19] MEDS: SPIRONOLACTONE 25 MG TAB PO SCH (12:30)
[2023-02-19] MEDS: METOPROLOL SUCCINATE (ER) 25 MG TAB.ER.24H PO SCH (12:31)
--- NOTE | 2023-02-19 20:17 | P.PN ---
Progress Note - Text Progress Note Date: 02/19/23 Chief Complaint: Bleeding per rectum This is a 22-year-old patient who follows with Dr. Suman Mullen. Histories predominantly obtained by the daughter at the bedside. Tami. Patient lives with her. Patient's had bleeding hemorrhoids for about 2 months. Rather painful. Patient is being a few trips to the doctor. Last 2 weeks patient with having some loose stools. Unable to make to the bathroom. Hemorrhoid has been able to be reduced but does slips out again. No fever no chills. Appetite is fair. Patient has fallen twice in the last couple of weeks. Does complain of pain in the left lower abdomen in the hip area. Computed tomography scan EF at that shows some proctocolitis. Patient has some memory loss. Underlying schizophrenia. Patient has been treated outpatient several times to fungal infection the vaginal area. Having urinary dysuria. Admitted with acute proctocolitis, left hip pain, positive troponin some EKG changes. Prolapsing painful hemorrhoid 02/16/2023: Underwent cardiac catheterization by Dr. Serrano from cardiology. Nonobstructive disease. This evening tolerated his regular diet. No abdominal pain. Awaiting surgical input regarding the hemorrhoids. 02/17/2023: Tolerating diet. Suspected rectal prolapse. Seen by Dr. Abreu from surgery. For colonoscopy Sunday. No further bleeding. No pain. 02/18/2023: Getting liquid diet. For colonoscopic tomorrow. No bleeding per rectum. No abdominal pain. 02/19/2023: Patient seen by me this morning before procedure. Later colonoscopy with biopsy was done: Found to rectal prolapse of a 6 cm. Some evidence of mild diverticulosis and proctitis. Diet advanced by surgery. Active Medications Acetaminophen (Acetaminophen Tab 325 Mg Tab) 650 mg PO Q6HR PRN PRN Reason: Mild Pain or Fever > 100.5 Last Admin: 02/16/23 09:09 Dose: 650 mg Hydrocodone Bitart/Acetaminophen (Hydrocodone/Apap 5-325mg 1 Each Tab) 1 each PO Q4HR PRN PRN Reason: Moderate Pain (Scale 4 to 6) Last Admin: 02/17/23 11:30 Dose: 1 each Allopurinol (Allopurinol 300 Mg Tab) 300 mg PO DAILY SHAKIRA Last Admin: 02/19/23 12:28 Dose: 300 mg Alprazolam (Alprazolam 0.25 Mg Tab) 0.25 mg PO Q6HR PRN PRN Reason: Mild Anxiety Alprazolam (Alprazolam 0.5 Mg Tab) 0.5 mg PO Q6HR PRN PRN Reason: Moderate Anxiety Aspirin (Aspirin 81 Mg) 81 mg PO DAILY [facility] Last Admin: 02/19/23 12:29 Dose: 81 mg Atorvastatin Calcium (Atorvastatin 40 Mg Tab) 40 mg PO DAILY [facility] Last Admin: 02/19/23 12:29 Dose: 40 mg Calcium Carbonate/Glycine (Calcium Carbonate 500 Mg Chewable) 1,000 mg PO Q4HR PRN PRN Reason: Dyspepsia Carbamazepine (Carbamazepine 200 Mg Tab) 200 mg PO BID [facility] Last Admin: 02/19/23 20:13 Dose: 200 mg Enoxaparin Sodium (Enoxaparin 40 Mg/0.4 Ml Syringe) 40 mg SQ DAILY [facility] Last Admin: 02/19/23 12:28 Dose: 40 mg Famotidine (Famotidine 20 Mg Tab) 20 mg PO DAILY [facility] Last Admin: 02/19/23 12:29 Dose: 20 mg Sodium Chloride 1,000 ml/ IV (Solution) 1,000 mls @ 56.699 mls/hr IV .[id number] [facility] Last Admin: 02/18/23 22:40 Dose: Not Given Piperacillin Sod/Tazobactam (Sod 3.375 gm/ Sodium Chloride) 100 mls @ 25 mls/hr IVPB Q8H [facility]; Protocol Last Admin: 02/19/23 13:08 Dose: 25 mls/hr Lactulose (Lactulose 20 Gm/30 Ml Cup) 20 gm PO DAILY PRN PRN Reason: Constipation Lisinopril (Lisinopril 2.5 Mg Tab) 2.5 mg PO DAILY [facility] Last Admin: 02/19/23 12:29 Dose: 2.5 mg Lorazepam (Lorazepam 0.5 Mg Tab) 0.5 mg PO Q6HR PRN PRN Reason: Anxiety Melatonin (Melatonin 3 Mg Tablet) 3 mg PO HS PRN PRN Reason: Insomnia Meloxicam (Meloxicam 7.5 Mg Tab) 15 mg PO DAILY [facility] Last Admin: 02/19/23 12:30 Dose: 15 mg Metoprolol Succinate (Metoprolol Succinate (Er) 25 Mg Tab.Er.24h) 12.5 mg PO DAILY [facility] Last Admin: 02/19/23 12:31 Dose: 12.5 mg Naloxone HCl (Naloxone 0.4 Mg/Ml 1 Ml Vial) 0.2 mg IV Q2M PRN PRN Reason: Opioid Reversal Nitroglycerin (Nitroglycerin Sl Tabs 0.4 Mg Tab) 0.4 mg SUBLINGUAL Q5M PRN PRN Reason: Chest Pain Ondansetron HCl (Ondansetron 4 Mg/2 Ml Vial) 4 mg IVP Q8HR PRN PRN Reason: Nausea And Vomiting Spironolactone (Spironolactone 25 Mg Tab) 12.5 mg PO DAILY [facility] Last Admin: 02/19/23 12:30 Dose: 12.5 mg Past medical history to include: Hypertension, hyperlipidemia, osteoarthritis, skin cancer the face, no medication for blood pressure since weight loss. Liver laceration repaired. Schizophrenia Social history: Lives with her daughter. Nonsmoker. Alcohol occasionally. Does use a cane. Physical examination: VITAL SIGNS: 97, 72, 16, 1:30/63, 98% room air GENERAL: Reclining in bed, comfortable EYES: Pupils equal. Conjunctiva normal. HEENT: External appearance of nose and ears normal, oral cavity grossly normal. NECK: JVD not raised; masses not palpable. HEART: First and second heart sounds are normal; no edema. LUNGS: Respiratory rate normal; clear to auscultation. ABDOMEN: Soft, no tenderness, no guarding rigidity, liver spleen not palpable, no masses palpable. PSYCH: Alert and oriented x3; mood and affect less anxiousl. MUSCULOSKELETAL:No Clubbing/cyanosis;muscles-grossly intact. OA. Tenderness over the left hip. INVESTIGATIONS, reviewed in the clinical context: February 17: White count 4.9 hemoglobin 11.3 platelets 120 sodium 131 potassium 4.2 creatinine 0.71 2-D echocardiogram: EF 40 - 45%. Anteroapical hypokinesis. Moderate to severe MR. Left rib cage x-ray: No fracture. Left hip x-ray: No fracture White count 7.3 hemoglobin 13.7 platelets 151 sodium 133 potassium 4.2 BUN 23 creatinine 0.85 Troponin I 0.051, 0.046, 0.045 UA: Positive for leukoesterase WBC. Negative for nitrite EKG tracing personally reviewed by me-T wave changes in inferolateral leads. CT abdomen pelvis with contrast: Gallbladder absent. Thickening with hyperenhancement of the distal sigmoid colon and rectum. Surrounding fat stranding identified. Distal colonic diverticulosis. Without evidence of diverticulitis. Assessment and plan: -Acute proctocolitis. No GI service available in the hospital.: clinical improvement IV Zosyn. Diet advanced. General surgery following. -Painful rectal prolapse Outpatient colorectal consultation. -Left hip pain. Left rib pain. Patient had recent falls.-X-rays negative for fracture. Likely pain from arthritis and blunt injury. Seen by Dr. Malagon. No further intervention. -Nonobstructive coronary artery disease per cardiac catheterization. . Aspirin. Lipitor. -Chronic congestive heart failure from ischemic cardiomyopathy. EF 40-45%. Follow with cardiology. -Positive troponin likely from hemodynamic mismatch. Patient did not have any chest pain. 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 -Mild cognitive impairment, possibly from early dementia -Acute UTI with cystitis IV Zosyn -Full code Diet advanced to regular. Plan for discharge tomorrow.
[2023-02-19] MEDS: SODIUM CHLORIDE 0.9% 1,000 ML in EMPTY BAG 1 BAG IV SCH (22:22)
[2023-02-20 02:04] VITALS: TEMP 98.5
[2023-02-20] MEDS: PIPERACILLIN-TAZOBACTAM 3.375 GM in SODIUM CHLORIDE 0.9% 100 ML IVPB SCH ×2 (05:34→14:08)
[2023-02-20] MEDS: carBAMazepine 200 MG TAB PO SCH (09:59)
[2023-02-20] MEDS: METOPROLOL SUCCINATE (ER) 25 MG TAB.ER.24H PO SCH (09:59)
[2023-02-20] MEDS: FAMOTIDINE 20 MG TAB PO SCH (09:59)
[2023-02-20] MEDS: ASPIRIN 81 MG PO SCH (09:59)
[2023-02-20] MEDS: allopurinoL 300 MG TAB PO SCH (10:00)
[2023-02-20] MEDS: ENOXAPARIN 40 MG/0.4 ML SYRINGE SQ SCH (10:00)
[2023-02-20] MEDS: ATORVASTATIN 40 MG TAB PO SCH (10:00)
[2023-02-20] MEDS: MELOXICAM 7.5 MG TAB PO SCH (10:00)
[2023-02-20] MEDS: SPIRONOLACTONE 25 MG TAB PO SCH (10:00)
[2023-02-20 10:53] VITALS: BP 95/53; PULSE 65; RESP 17
--- NOTE | 2023-02-20 12:55 | P.PN ---
Subjective Progress Note Date: 02/20/23 CHIEF COMPLAINT: Rectal prolapse HISTORY OF PRESENT ILLNESS: Patient status post colonoscopy with biopsy results showing rectal prolapse, proctitis and diverticulosis. Patient tolerated diet. She denies any abdominal pain. Denies any nausea or vomiting. She is scheduled for discharge today. Afebrile. PHYSICAL EXAM: VITAL SIGNS: Reviewed. GENERAL: Well-developed in no acute distress. ABDOMEN: Soft. Nondistended. Nontender. NEUROLOGIC: Alert and oriented. Cranial nerves II through XII grossly intact. ASSESSMENT: 1. Rectal bleeding status post colonoscopy revealing rectal prolapse, proctitis and diverticulosis PLAN: -Patient is stable for discharge -Continue stool softeners -Recommend Kegel exercises -Recommend outpatient referral to colorectal surgeon for rectal prolapse Physician Retention Manager note has been reviewed by physician. Signing provider agrees with the documented findings, assessment, and plan of care. Objective - Vital Signs Vital signs: Vital Signs Temp 98.5 F 02/20/23 08:49 Pulse 65 02/20/23 08:49 Resp 17 02/20/23 08:49 BP 95/53 02/20/23 08:49 Pulse Ox 95 02/20/23 08:49 FiO2 Intake & Output 02/19/23 02/20/23 02/20/23 18:59 06:59 18:59 Intake Total 100 340 Balance 100 340 Intake: IV 100 Intake, IV Titration 100 Amount Piperacillin-Tazobactam 3 100 .375 gm In Sodium Chloride 0.9% 100 ml @ 25 mls/hr IVPB Q8H [facility] Rx#: [id number] Oral 240 Other: Voiding Method Toilet # Voids 2 2 # Bowel Movements 0 - Labs CBC & Chem 7: 02/17/23 09:26 02/17/23 09:26
--- NOTE | 2023-02-20 14:40 | P.DS ---
Providers Date of admission: 02/15/23 11:19 Expected date of discharge: 02/20/23 Attending physician: Travis Romano Consults: 02/15/23 11:17 Consult Physician Urgent Consulting Provider: Singh Pope Consult Reason/Comments: Rectal bleeding with hemorrhoids, proctocolitis Do you want consulting provider notified?: Yes 02/15/23 13:43 Consult Physician Routine Consulting Provider: Errol Malagon Consult Reason/Comments: left hip pain,fall Do you want consulting provider notified?: Yes Primary care physician: [facility] Course: Chief Complaint: Bleeding per rectum This is a 22-year-old patient who follows with Dr. Suman Mullen. Histories predominantly obtained by the daughter at the bedside. Tami. Patient lives with her. Patient's had bleeding hemorrhoids for about 2 months. Rather painful. Patient is being a few trips to the doctor. Last 2 weeks patient with having some loose stools. Unable to make to the bathroom. Hemorrhoid has been able to be reduced but does slips out again. No fever no chills. Appetite is fair. Patient has fallen twice in the last couple of weeks. Does complain of pain in the left lower abdomen in the hip area. Computed tomography scan EF at that shows some proctocolitis. Patient has some memory loss. Underlying schizophrenia. Patient has been treated outpatient several times to fungal infection the vaginal area. Having urinary dysuria. Admitted with acute proctocolitis, left hip pain, positive troponin some EKG changes. Prolapsing painful hemorrhoid 02/16/2023: Underwent cardiac catheterization by Dr. Serrano from cardiology. Nonobstructive disease. This evening tolerated his regular diet. No abdominal pain. Awaiting surgical input regarding the hemorrhoids. 02/17/2023: Tolerating diet. Suspected rectal prolapse. Seen by Dr. Abreu from surgery. For colonoscopy Sunday. No further bleeding. No pain. 02/18/2023: Getting liquid diet. For colonoscopic tomorrow. No bleeding per rectum. No abdominal pain. 02/19/2023: Patient seen by me this morning before procedure. Later colonoscopy with biopsy was done: Found to rectal prolapse of a 6 cm. Some evidence of mild diverticulosis and proctitis. Diet advanced by surgery. 02/20/2023: Tolerating diet. Seen by surgery.Outpatient follow-up with colorectal surgery. Past medical history to include: Hypertension, hyperlipidemia, osteoarthritis, skin cancer the face, no medication for blood pressure since weight loss. Liver laceration repaired. Schizophrenia Social history: Lives with her daughter. Nonsmoker. Alcohol occasionally. Does use a cane. Physical examination: VITAL SIGNS: 98.5, 65, 17, 95/53, 95% room air GENERAL: Reclining in bed, comfortable EYES: Pupils equal. Conjunctiva normal. HEENT: External appearance of nose and ears normal, oral cavity grossly normal. NECK: JVD not raised; masses not palpable. HEART: First and second heart sounds are normal; no edema. LUNGS: Respiratory rate normal; clear to auscultation. ABDOMEN: Soft, no tenderness, no guarding rigidity, liver spleen not palpable, no masses palpable. PSYCH: Alert and oriented x3; mood and affect less anxiousl. MUSCULOSKELETAL:No Clubbing/cyanosis;muscles-grossly intact. OA. Tenderness over the left hip. INVESTIGATIONS, reviewed in the clinical context: February 17: White count 4.9 hemoglobin 11.3 platelets 120 sodium 131 potassium 4.2 creatinine 0.71 2-D echocardiogram: EF 40 - 45%. Anteroapical hypokinesis. Moderate to severe MR. Left rib cage x-ray: No fracture. Left hip x-ray: No fracture White count 7.3 hemoglobin 13.7 platelets 151 sodium 133 potassium 4.2 BUN 23 creatinine 0.85 Troponin I 0.051, 0.046, 0.045 UA: Positive for leukoesterase WBC. Negative for nitrite EKG tracing personally reviewed by wy-T wave changes in inferolateral leads. CT abdomen pelvis with contrast: Gallbladder absent. Thickening with hyperenhancement of the distal sigmoid colon and rectum. Surrounding fat stranding identified. Distal colonic diverticulosis. Without evidence of diverticulitis. Assessment and plan: -Acute proctocolitis. No GI service available in the hospital.: clinical improvement IV Zosyn. Diet advanced. General surgery following. Augmentin 875 one tablet twice a day for 5 days -Intermittent rectal prolapse Outpatient colorectal consultation. -Left hip pain. Left rib pain. Patient had recent falls.-X-rays negative for fracture. Likely pain from arthritis and blunt injury. Seen by Dr. Malagon. No further intervention. -Nonobstructive coronary artery disease per cardiac catheterization. . Aspirin. Lipitor. -Chronic congestive heart failure from ischemic cardiomyopathy. EF 40-45%. Follow with cardiology. Aldactone 12.5 mg. Zestril 2.5 mg daily at bedtime. -Positive troponin likely from hemodynamic mismatch. Patient did not have any chest pain. 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 -Mild cognitive impairment, possibly from early dementia -Acute UTI with cystitis Computed antibiotics -Full code Disposition: [facility] Plan - Discharge Summary Discharge Rx Participant: No New Discharge Prescriptions: New Aspirin 81 mg PO DAILY tab Atorvastatin [Lipitor] 40 mg PO DAILY #30 tab Spironolactone [Aldactone] 12.5 mg PO DAILY #30 tab Amoxic-Pot Clav 875-125Mg [Augmentin 875-125] 1 tab PO BID 1 Days #10 tab Nitroglycerin Sl Tabs [Nitrostat] 0.4 mg SUBLINGUAL Q5M PRN #30 tab PRN Reason: Chest Pain Metoprolol Succinate (ER) [Toprol XL] 12.5 mg PO DAILY #30 tab lisinopriL [Zestril] 2.5 mg PO HS #30 tab Continue Meloxicam [Mobic] 15 mg PO DAILY allopurinoL [Zyloprim] 300 mg PO DAILY Acetaminophen [Tylenol Arthritis] 650 mg PO Q8H PRN PRN Reason: Fever And/ Or Pain carBAMazepine [TEGretol] 200 mg PO BID Clobetasol Propionate [Temovate 0.05% Oint] 1 applic TOPICAL DAILY Discontinued Furosemide [Lasix] 40 mg PO DAILY Naproxen 500 mg PO BID PRN PRN Reason: Pain Discharge Medication List Meloxicam [Mobic] 15 mg PO DAILY 06/01/20 [History] allopurinoL [Zyloprim] 300 mg PO DAILY 06/01/20 [History] Acetaminophen [Tylenol Arthritis] 650 mg PO Q8H PRN 08/02/21 [History] Clobetasol Propionate [Temovate 0.05% Oint] 1 applic TOPICAL DAILY 02/15/23 [History] carBAMazepine [TEGretol] 200 mg PO BID 02/15/23 [History] Amoxic-Pot Clav 875-125Mg [Augmentin 875-125] 1 tab PO BID 1 Days #10 tab 02/20/23 [Rx] Aspirin 81 mg PO DAILY tab 02/20/23 [Rx] Atorvastatin [Lipitor] 40 mg PO DAILY #30 tab 02/20/23 [Rx] Metoprolol Succinate (ER) [Toprol XL] 12.5 mg PO DAILY #30 tab 02/20/23 [Rx] Nitroglycerin Sl Tabs [Nitrostat] 0.4 mg SUBLINGUAL Q5M PRN #30 tab 02/20/23 [Rx] Spironolactone [Aldactone] 12.5 mg PO DAILY #30 tab 02/20/23 [Rx] lisinopriL [Zestril] 2.5 mg PO HS #30 tab 02/20/23 [Rx] Follow up Appointment(s)/Referral(s): Singh Pope MD [Medical Doctor] - 3 Weeks Maykel Serrano MD [Medical Doctor] - 1 Week [facility], [NON-STAFF] - Suman Mullen MD [Primary Care Provider] - 1-2 days Activity/Diet/Wound Care/Special Instructions: f/u orders from dr pope
[2023-02-20] MEDS: HYDROcodone/APAP 5-325MG 1 EACH TAB PO PRN (15:36)
== END 2023-02-20 16:38 | DRG 385 ==
LOC: EC 08:36 → 3SCARD 11:19 → 5NMEDONC 02-17 21:17
PROVIDERS: ADMIT Hospitalist; ATTEND Hospitalist
PROC: 4A023N7 Measurement of Cardiac Sampling and Pressure, Left Heart, Percutaneous Approach (ICD-10-PCS; principal; 2023-02-16 09:35)
PROC: B2111ZZ Fluoroscopy of Multiple Coronary Arteries using Low Osmolar Contrast (ICD-10-PCS; principal; 2023-02-16 09:35)
PROC: 0DBP8ZX Excision of Rectum, Via Natural or Artificial Opening Endoscopic, Diagnostic (ICD-10-PCS; 2023-02-19)
DX: K51.311 Ulcerative (chronic) rectosigmoiditis with rectal bleeding (principal); I21.A1 Myocardial infarction type 2; F03.93 Unspecified dementia, unspecified severity, with mood disturbance; F03.94 Unspecified dementia, unspecified severity, with anxiety; N30.00 Acute cystitis without hematuria; I50.22 Chronic systolic (congestive) heart failure; I42.8 Other cardiomyopathies; E78.5 Hyperlipidemia, unspecified; M54.50 Low back pain, unspecified; K62.3 Rectal prolapse; S70.02XA Contusion of left hip, initial encounter; M43.16 Spondylolisthesis, lumbar region; F20.9 Schizophrenia, unspecified; F32.A Depression, unspecified; K57.30 Diverticulosis of large intestine without perforation or abscess without bleeding; F41.9 Anxiety disorder, unspecified; K64.8 Other hemorrhoids; G47.00 Insomnia, unspecified; I34.0 Nonrheumatic mitral (valve) insufficiency; I11.0 Hypertensive heart disease with heart failure; M16.12 Unilateral primary osteoarthritis, left hip; R07.81 Pleurodynia; I25.10 Atherosclerotic heart disease of native coronary artery without angina pectoris; R26.9 Unspecified abnormalities of gait and mobility; W01.0XXA Fall on same level from slipping, tripping and stumbling without subsequent striking against object, initial encounter; Y92.019 Unspecified place in single-family (private) house as the place of occurrence of the external cause; R29.6 Repeated falls; Z79.899 Other long term (current) drug therapy; Z85.828 Personal history of other malignant neoplasm of skin; Z85.43 Personal history of malignant neoplasm of ovary; Z79.1 Long term (current) use of non-steroidal anti-inflammatories (NSAID)
CPT/HCPCS: 36415; 45380; 73502; 74177; 80048; 80053; 81001; 83605; 84443; 84484; 85025; 85610; 85730; 87040; 87086; 88305; 93005; 93306; 93458; 96365; 96366; 96375; 99285